=== PATIENT | male | born 1945 | race Asian ===

== ENCOUNTER → 2024-12-14 | Outpatient (CLI) | payer MEDICARE, MEDICAID, SELFPAY ==
--- NOTE | 2024-12-14 12:23 | XR_ITS ---
Examination: PA lateral chest 2 views TECHNIQUE: Upright PA lateral chest 2 views Exam date and time: December 14, 2024 1328 hours INDICATIONS: Chest pain beginning 2 days ago. FINDINGS: Minor prominence left ventricle No pneumonia or pulmonary edema Moderate osteopenia IMPRESSION: No pneumonia or pulmonary edema
== END | disposition home or self-care (01) ==
LOC: CDIM 11:24
PROVIDERS: PCP Family Medicine; Referring Provider Family Medicine; Visit Provider Family Medicine
DX: R07.9 Chest pain, unspecified (principal)
CPT/HCPCS: 71046

== ENCOUNTER 2025-02-22 13:43 | Inpatient (IN) | payer OTHER, MEDICAID, MEDICARE, SELFPAY ==
[2025-02-22 13:44] VITALS: BMI 29.0
[2025-02-22 13:58] VITALS: BP 126/81; PULSE 78; RESP 18; TEMP 36.7; O2SAT 96
--- NOTE | 2025-02-22 14:01 | XR_ITS ---
Examination: PA lateral chest 2 views TECHNIQUE: Upright PA lateral chest 2 views Exam date and time: February 22, 2025 1431 hours INDICATIONS: Acute chest pain today. FINDINGS: Normal heart size No lobar pneumonia or pulmonary edema Prominent osteopenia IMPRESSION: No lobar pneumonia or pulmonary edema
--- NOTE | 2025-02-22 14:01 | EKG_ITS ---
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1945 Requested By: Andrea Rosales (CHARLES) Order Number: [id number] Reading MD: Andrea Rosales (SCREW MACHINE TOOL SETTER) Measurements Intervals [place] Rate: 75 P: 37 UT: 172 QRS: -56 QRSD: 118 T: 19 QT: 420 QTc: 471 Interpretive Statements SINUS RHYTHM PATTERN CONSISTENT WITH PULMONARY DISEASE LEFT ANTERIOR FASCICULAR BLOCK [QRS AXIS <= -45, QR IN I, RS IN II] POSSIBLE LEFT VENTRICULAR HYPERTROPHY [VOLTAGE CRITERIA PLUS LAE OR QRS WIDENING] MODERATE T-WAVE ABNORMALITY, CONSIDER ANTERIOR ISCHEMIA [-0.1+ mV T-WAVE IN V3/V4] No previous ECG available for comparison /[id number]/S0/[id number].pdf
--- NOTE | 2025-02-22 14:01 | PD.EDRME ---
Rapid Medical Screening Exam [facility] Arrival date/time: 02/22/25 13:43 79-year-old male presents to the emergency dept today for complaint of generalized weakness patient had outpatient labs 4 days ago had low sodium as well as low potassium Chief Complaint: Weakness Vital signs: Vital Signs Temperature 98.1 F 02/22/25 13:58 Pulse Rate 78 02/22/25 13:58 Respiratory Rate 18 02/22/25 13:58 Blood Pressure 126/81 02/22/25 13:58 Pulse Oximetry (%) 96 02/22/25 13:58 Oxygen Delivery Method Room Air 02/22/25 13:58
[2025-02-22 14:51] LABS: Basophils % (Auto) 1 % (0-2.5); Eosinophils # (Auto) 0.2 Thou/mm3 (0.0-0.5); Eosinophils % (Auto) 2 % (0-10); Hematocrit 39.6 % (41.0-53.0); Hemoglobin 13.4 g/dL (13.5-16.0); Immature Granulocytes % (Auto) 1 % (0-0); Immature Granulocytes Auto 0.07 Thou/mm3 (0.00-0.00); Lymphocytes # (Auto) 1.5 Thou/mm3 (1.0-4.8); Lymphocytes % (Auto) 19 % (10-50); Mean Corpuscular HGB Conc 33.8 g/dl (31.0-37.0); Mean Corpuscular Volume 80 fL (80-100); Monocytes # (Auto) 1.2 Thou/mm3 (0.0-0.8); Monocytes % (Auto) 15 % (0-12); Neutrophils % (Auto) 62 % (37-80); Nucleated Red Blood Cell % 0 /100 WBC (0); Platelet Count 264 Thou/mm3 (140-440); RDW Standard Deviation 37.7 fL (35.1-43.9); Red Blood Count 4.97 Miln/mm3 (4.50-5.90)
[2025-02-22 14:56] LABS: Collection Type, Urine Clean Catch
[2025-02-22 14:56] LABS: B-Type Natriuretic Peptide 27 pg/mL (0-100)
[2025-02-22 14:58] LABS: Partial Thromboplastin Time 27.8 Seconds (22.0-36.0); Prothrombin Time 10.8 Seconds (9.0-12.2)
[2025-02-22 15:01] LABS: Alanine Aminotransferase 24 U/L (10-49); Albumin, Serum 4.3 gm/dL (3.4-4.8); Albumin/Globulin Ratio 1.2 (1.2-2.2); Alkaline Phosphatase 90 U/L (46-116); Anion Gap 9 (7-16); Aspartate Amino Transferase 32 U/L (0-34); BUN/Creatinine Ratio 10 Ratio (12-20); Bilirubin,Total 0.5 mg/dL (0.3-1.2); Blood Urea Nitrogen 11 mg/dL (9-23); Calcium 9.2 mg/dL (8.3-10.6); Calcium (Corrected) 9.2 mg/dL (8.5-10.1); Carbon Dioxide 34.7 mMol/L (20.0-31.0); Chloride 82 mMol/L (98-107); Creatinine (Component) 1.1 mg/dL (0.6-1.3); Estimated Creatinine Clearance 54.5 mL/min (>60); Globulin 3.5 gm/dL (2.3-3.5); Glucose 247 mg/dL (74-106); Magnesium 2.1 mg/dL (1.6-2.6); Osmolality,Calculated 260 (275-295); Sodium 126 mMol/L (136-145); Total Protein 7.8 gm/dL (5.7-8.2); Troponin I 0.034 ng/mL (0.0-0.045); eGFR > 60 See Note
[2025-02-22 15:06] LABS: Potassium 2.4 mMol/L (3.4-5.1)
[2025-02-22 15:08] LABS: Bacteria,Urine 1+; Bilirubin,Urine Negative (Negative); Blood,Urine Negative (Negative); Clarity,Urine Clear (Clear/Hazy); Color,Urine Lt-Yellow (Lt Yel-Yel); Glucose, Urine 4+ (Negative); Ketones,Urine Negative (Negative); Leukocyte Esterase,Urine Positive (Negative); Nitrite,Urine Negative (Negative); PH,Urine 6.5 (5.0-7.0); Protein,Urine Negative (Neg - Trace); RBC,Urine 34 /hpf (0-3); Specific Gravity,Urine 1.023 (1.001-1.035); Squamous Epithelial Cell,Urine 2 /hpf (0-5); Urobilinogen,Urine Negative mg/dL (0.0-1.0); WBC,Urine 16 /hpf (0-5)
[2025-02-22 18:30] VITALS: BP 148/78; PULSE 71; RESP 16; TEMP 37; O2SAT 95
--- NOTE | 2025-02-22 18:43 | PC.NURSE ---
PT CAME TO ER W/ WEAKNESS AND NOT FEELING GOOD. POTASSIUM IS 2.4. VS STABLE. GRANDSON AT BEDSIDE. WILL CONT TO MONITOR.
--- NOTE | 2025-02-22 19:01 | PD.EDWEAK ---
ED Weakness RME/HPI General Chief complaint: Weakness Stated complaint: WEAKNESS AND ABNORMAL LABS SENT BY PMD Time Seen by Provider: 02/22/25 19:55 Source: patient, family, RN notes reviewed and old records reviewed Arrival date/time: 02/22/25 13:43 Mode of arrival: wheelchair Limitations: no limitations RME / HPI RME / HPI Narrative: 02/22/25 13:43 79-year-old male presents to the emergency dept today for complaint of generalized weakness patient had outpatient labs 4 days ago had low sodium as well as low potassium DR. SUGGS?S MAIN ED EVALUATION: 79-year-old male with Hx of High cholesterol, hypertension, iron deficiency anemia, and depression presenting to the emergency department via private auto from Dr. Whitfield's office who is presenting for chief/stated complaint of generalized weakness x 5 days. Son is at bedside and is able to provide patient information. Patient has had previous labs showing K 2.8 and Na 126. Denies difficulty walking, dizziness or shortness of breath. Patient denies any other associated symptoms or medical complaints. - PMH: High cholesterol, hypertension, iron deficiency anemia, depression - PSH: Denies - Social history: Lives with family. - Current medications: Reviewed PCP is MD Nahid Related Data Home Medications ?Medication ?Instructions ?Recorded ?Confirmed Pioglitazone Hcl/Metformin Hcl * 1 tab PO BID DIABETIS #0 tabs 11/30/13 (ACTOPLUS MET 15/850 *) atorvastatin 20 mg tablet (Lipitor) 20 mg PO HS CHOLESTROL ##0 11/30/13 lisinopril 40 mg tablet 40 mg PO QDAY High Blood Pressure 11/30/13 ##0 montelukast 10 mg tablet 10 mg PO QHSPRN PRN ASTHMA ##0 11/30/13 (Singulair) omeprazole 20 mg tablet,delayed 20 mg PO QDAY GERD ##0 11/30/13 release risperidone 1 mg tablet (Risperdal) 1 mg PO HS #0 tabs 11/30/13 sertraline 100 mg tablet (Zoloft) 100 mg PO HS Depression #0 tabs 11/30/13 Aspirin (Aspir 81) 81 mg PO QDAY ##0 09/03/17 baclofen 10 mg tablet 10 mg PO BID #0 tabs 09/03/17 ferrous sulfate 325 mg (65 mg 325 mg PO BIDWM #0 tabs 09/03/17 iron) tablet (Feosol) hydrochlorothiazide 12.5 mg tablet 50 mg PO QAM #0 tabs 09/03/17 ibuprofen 800 mg tablet 800 mg PO Q8HR PRN PAIN #0 tabs 09/03/17 metformin 850 mg tablet 850 mg PO BID #0 tabs 09/03/17 (Glucophage) Allergies Allergy/AdvReac Type Severity Reaction Status Date / Time Penicillins Allergy Severe Anaphylaxis Verified 02/22/25 13:49 Review of Systems Review of Systems Systems Reviewed: All systems reviewed, normal except as documented Narrative Review of Systems: PULM: No shortness of breat Musc/skel: No difficulty walking Neuro: + weakness, no dizziness Past Medical History Social History SMOKING STATUS: Never smoker ED Exam Narrative Physical exam: GENERAL: In general the patient is awake, interactive, in an emergency department [facility]. HEAD/EYES/EARS/NOSE/THROAT: normo-cephalic, atraumatic, mucus membranes are moist. No cervical tenderness palpation midline. Supple neck. CARDIOVASCULAR: regular rate and regular rhythm, no murmurs, heart sounds are not distant, strong pulses in all four extremities that are equal and symmetric bilateral upper and lower extremities, normal capillary refill. CHEST/PULMONARY: normal chest rise and fall, good air movement, clear to auscultation bilaterally, normal inspiratory to expiratory ratios without evidence of respiratory distress. ABDOMEN: soft, not tender, no masses appreciated BACK: normal range of motion without pain. NEUROLOGICAL: No focal weakness. Normal finger to nose exam. EXTREMITY: no peripheral edema. SKIN: warm, dry, well-perfused, PSYCH: calm, cooperative, no evidence of psychosis or agitation General Limitations: Present no limitations Course Course Course Narrative: Chest x-ray is obtained for chief complaint of generalized weakness. Quality Measures none Orders Category Date Time Status COVID-19 Screening Questionnaire NOW Care 02/23/25 00:11 Active Decision to Admit X1 Care 02/23/25 00:11 Active EKG (ED ONLY) *Do not use* NOW Care 02/22/25 14:01 Completed EKG (ED Only) Stat Exams 02/22/25 14:01 Draft XR chest 2V Stat Exams 02/22/25 14:01 Completed B-Type Natriuretic Peptide Stat Lab 02/22/25 14:18 Completed BMP [Basic Metabolic Panel] Stat Lab 02/22/25 22:18 Completed CBC Stat Lab 02/22/25 14:18 Completed Comprehensive Metabolic Panel Stat Lab 02/22/25 14:18 Completed Magnesium Stat Lab 02/22/25 14:18 Completed Partial Thromboplastin Time Stat Lab 02/22/25 14:18 Completed Prothrombin Time with INR Stat Lab 02/22/25 14:18 Completed Troponin I Stat Lab 02/22/25 14:18 Completed Urinalysis Stat Lab 02/22/25 14:46 Completed POTASSIUM CHL 10 mEq IVPB [Kcl Ivpb] Med 02/22/25 19:03 Discontinued 10 meq in 100 ml IV Q1H Potassium Chloride [K-Dur] Med 02/22/25 19:02 Discontinued 40 meq PO X1 ONE Sodium Chloride 0.9% 1000 ml [Ns] 1,000 ml Med 02/22/25 19:05 Discontinued IV 999 mls/hr cefTRIAXone/D5w 1gm IV premix [Rocephin/D5w 1gm IV Med 02/22/25 19:05 Discontinued premix] 1 gm in 50 ml IV X1 Vital Signs Vital signs: Vital Signs Temperature 98.1 F 02/22/25 13:58 Pulse Rate 78 02/22/25 13:58 Respiratory Rate 18 02/22/25 13:58 Blood Pressure 126/81 02/22/25 13:58 Pulse Oximetry (%) 96 02/22/25 13:58 Oxygen Delivery Method Room Air 02/22/25 13:58 Procedures -ED EKG Interpretation #1: Date of EK02/22/25 Time of EK:03 Interpretation: Interpreted by me EKG Impression: Normal sinus rhythm Additional EKG comment: LVH. No elevations or depressions. QTc is 471. No ST elevations. No ST depressions. Weakness MDM Narrative MDM Narrative:: Scribe Attestation: Ellen Ryan, am scribing for and in the presence of Dr. Suggs. Provider Notation: Although this document has been carefully reviewed, there may still be some phonetic and other typographical errors. These errors are purely grammatical due to imperfections in the software program and should not be construed in any way to compromise the substance of the patient's medical care during this visit. DDX: Anemia, UTI, dehydration, electrolyte abnormality, low potassium, angina. Patient data External records reviewed:: [facility] previous records (No prior ED records available for review.) and Other (specify) (Paperwork from the doctor's office with the son shows: High cholesterol, hypertension, iron deficiency anemia, depression) Clinical information provided by:: patient and family (Son: Reports that his potassium was low at the doctor's office.) Social determinants that could affect healthcare access:: none Patient has the following chronic illnesses:: High cholesterol, hypertension, iron deficiency anemia, depression How is presenting disease/condition affected by chronic disease/condition?: exacerbated by Evaluation data The following diagnostics were reviewed and interpreted by me:: lab results, radiology exam(s) and EKG tracing(s) (1403: Sinus rhythm 75 BPM, ST-T wave change in v2-v3 , no elevation, no depression, LVH, QTc 449, no prior EKG available for comparison. ) Lab and/or radiology exams considered but not ordered:: None Interpretation Summary: Chest x-ray is interpreted reviewed by me. On my review the patient does not have pneumothorax, cardiomegaly, or CHF. Pending radiology interpretation. Chest x-ray FINDINGS: Normal heart size No lobar pneumonia or pulmonary edema Prominent osteopenia IMPRESSION: No lobar pneumonia or pulmonary edema LABS Hematology: Hgb 13.4, Hct 39.6%, [place] % 15%, [place] # 1.2, Immature granulocytes # 0.07, Immature granulocytes % 1%. Chemistry: Sodium 126, Potassium 2.4, Chloride 82, Carbon dioxide 34.7, Estimated creatinine 54.5, BUN/creatinine 10 ratio, Glucose 247, Calculated osmality 260. Urine: glucose 4+, RBC 34, WBC 16, Bacteria 1+. Medications / Prescriptions Medications or Prescriptions considered but not ordered:: None Medication administrations:: Medication Administration History Discontinued Medications Potassium Chloride (Kcl Ivpb) 10 meq in 100 mls @ 100 mls/hr IV Q1H AJ Stop: 02/22/25 21:02 Last Infusion: 02/22/25 21:42 Dose: Infused Documented By: Admin: 02/22/25 20:42 Dose: 100 mls/hr Documented By: Infusion: 02/22/25 20:41 Dose: Infused Documented By: Admin: 02/22/25 19:29 Dose: 100 mls/hr Documented By: EF Ceftriaxone Sodium/Dextrose (Rocephin/D5w 1gm Iv Premix) 1 gm in 50 mls @ 100 mls/hr IV X1 ONE Stop: 02/22/25 19:34 Last Infusion: 02/22/25 19:59 Dose: Infused Documented By: Admin: 02/22/25 19:29 Dose: 100 mls/hr Documented By: EF Sodium Chloride (Ns) 1,000 mls @ 999 mls/hr IV .Q1H1M ONE Stop: 02/22/25 20:05 Last Infusion: 02/22/25 20:31 Dose: Infused Documented By: Admin: 02/22/25 19:30 Dose: 999 mls/hr Documented By: EF Potassium Chloride (Potassium Chloride 20 Meq Tabcr) 40 meq PO X1 ONE Stop: 02/22/25 19:03 Last Admin: 02/22/25 19:28 Dose: 40 meq Documented By: EF See above if any Consultations Consultation(s) initiated? (list below): Yes Consultation #1 (Physician, Specialty, Details): Case d/w hospitalist, Dr. Lowe who was made aware of the patient?s HPI, PMHx, lab and/or radiology results. Treatment plan was discussed. Will admit for further evaluation and management. Accepts patient for admission. Time: 00:08 Diagnosis Weakness Differential Diagnosis: anemia and other (UTI, dehydration, electrolyte abnormality, low potassium, angina) Most likely diagnosis given after review of the tests above:: Generalized weakness, acute hypokalemia, UTI. Admission Indicated Admission indicated?: indicated Admission Request Was there a request for admission?: Yes Admission Attestation Admission request attestation: Discussed case with [] from Hospitalist service regarding admission. Discussed patients ED course, exam findings, labs, and radiology results. The Hospitalist [agrees,declines] to accept the patient for admission. Disposition Plan Disposition Plan: Admit Discharge Plan Plan Patient Disposition: Admit Acute Care w/in Hospital Patient condition on transfer: Stable Prescriptions/Referrals Prescriptions/Med Rec: No Action montelukast [Singulair] 10 MG tablet 10 mg PO QHSPRN PRN (Reason: ASTHMA) Qty: 0 sertraline [Zoloft] 100 MG tablet 100 mg PO HS Qty: 0 atorvastatin [Lipitor] 20 MG tablet 20 mg PO HS Qty: 0 lisinopril 40 MG tablet 40 mg PO QDAY Qty: 0 risperidone [Risperdal] 1 MG tablet 1 mg PO HS Qty: 0 omeprazole 20 MG tablet,delayed release (DR/EC) 20 mg PO QDAY Qty: 0 Pioglitazone Hcl/Metformin Hcl * (ACTOPLUS MET *) 1 TAB tablet 1 tab PO BID Qty: 0 Aspirin (Aspir 81) 81 MG TABLET.DR 81 mg PO QDAY Qty: 0 ibuprofen 800 MG tablet 800 mg PO Q8HR PRN (Reason: PAIN) Qty: 0 metformin [Glucophage] 850 MG tablet 850 mg PO BID Qty: 0 baclofen 10 MG tablet 10 mg PO BID Qty: 0 ferrous sulfate [Feosol] 1 TAB tablet 325 mg PO BIDWM Qty: 0 hydrochlorothiazide 12.5 MG tablet 50 mg PO QAM Qty: 0 Referrals: Valente Whitfield MD [Primary Care Provider] - In 1 week Problem List Clinical Impression: Generalized weakness, Acute hypokalemia, Acute UTI Patient/Caregiver Discharge Instructions Additional Instructions: DISCHARGE INSTRUCTIONS Even though you have been discharged from the Emergency Department, there are several things that you should do to ensure that you receive proper care: 1. DO READ your discharge instructions as these contain important information concerning your medical care. 2. If medication has been prescribed for your condition, fill the prescription as soon as possible and follow the directions on the medication. 3. RETURN AT ONCE TO THE EMERGENCY DEPARTMENT if you have any problems or concerns. These include but are not limited to fever, worsening pain(belly, chest, head, etc?), worsening shortness of breath, uncontrollable bleeding, inability to tolerate food and water, or any condition that makes you question your well-being. Also, if your symptoms do not improve in the next 12-24 hours, return to the ER or seek medical care immediately. 4. Be sure to follow up with your regular physician or specialist as instructed at discharge as this is the best way to ensure that you receive the very best of care. If you do not have a primary care physician, please contact a physician group and make an appointment. 5. Please visit [facility] for coupons regarding your prescriptions. It is a free service for you to use and can help reduce the cost of your medication. We would like to thank you for coming today and our hope is that we served you and your family well during your stay Print Language: Swedish Stand Alone Forms: Liane Award Info., Patient Portal Info Letter
[2025-02-22] MEDS: POTASSIUM CHLORIDE 20 mEq TABCR 40 MEQ PO (19:28)
[2025-02-22] MEDS: cefTRIAXone/D5w 1gm IV premix 1 GM/50 ML BAG IV (19:29)
[2025-02-22] MEDS: POTASSIUM CHL 10 mEq IVPB 10 MEQ/100 ML BAG 100 MEQ IV ×2 (19:29→20:42)
[2025-02-22] MEDS: SODIUM CHLORIDE 0.9% 1000 ML 1,000 ML 999 ML IV (19:30)
[2025-02-22 23:10] LABS: Anion Gap 9 (7-16); BUN/Creatinine Ratio 13 Ratio (12-20); Blood Urea Nitrogen 10 mg/dL (9-23); Calcium 8.6 mg/dL (8.3-10.6); Carbon Dioxide 31.7 mMol/L (20.0-31.0); Chloride 88 mMol/L (98-107); Creatinine (Component) 0.8 mg/dL (0.6-1.3); Glucose 145 mg/dL (74-106); Osmolality,Calculated 260 (275-295); Sodium 129 mMol/L (136-145); eGFR > 60 See Note
[2025-02-23] VITALS (7 sets, daily range): BP systolic 105–141; BP diastolic 66–78; PULSE 61–97; RESP 15–18; TEMP 36.1–36.8; O2SAT 95–97
[2025-02-23 00:07] LABS: Potassium 2.4 mMol/L (3.4-5.1)
[2025-02-23] MEDS: POTASSIUM CHLORIDE 20 mEq TABCR 40 MEQ PO ×2 (01:26→14:35)
[2025-02-23] MEDS: POTASSIUM CHL 10 mEq IVPB 10 MEQ/100 ML BAG 100 MEQ IV ×8 (01:27→11:24)
--- NOTE | 2025-02-23 01:43 | PD.RESHP ---
Documentation for date of: 02/23/25 HPI History of Present Illness Chief complaint: general weakness History of present illness: The patient is a 79-year-old [place]ian and Hmong speaking male with previous medical history of hypertension, hyperlipidemia, diabetes, iron deficiency anemia, type 2 diabetes, depression who was sent to the ED from Dr. Whitfield office after labs showed that he has low potassium 2.8 and low sodium 126. His grandson at the bedside providing translation at some moments. He reports feeling general weakness that started approximately 5 days ago, numbness in his feet. He usually ambulates using cane, but right now he is too weak to walk. He reports having burning during urination and increased frequency of urination. He denies shortness of breath, chest pain, abdominal pain, nausea, vomiting, diarrhea. ED course: Blood pressure 126/81, heart rate 78, respiratory rate 18, afebrile, saturating well on room air. Labs showed WBC count 8.0, hemoglobin 13.4, hematocrit 39.6, platelets 264. INR 1.0. Sodium 126, potassium 2.4, chloride 82, carbon dioxide 31.7, BUN 11, creatinine 0.8, glucose 247, AST 32, ALT 24, troponin I 0.034. UA showed 4+ glucose, leukocyte esterase positive, RBC 34, WBC 16, 1+ bacteria. Chest x-ray was negative for acute lung disease. EKG showed sinus rhythm. In the ED he received 40 mEq of potassium p.o. and 20 mEq potassium IV, 1 L of fluids, 1 g of ceftriaxone x 1. After receiving potassium supplements, repeat potassium was 2.4. Social history: Lives with his family at home, able to ambulate independently with cane, sometimes drives himself to his doctor's appointment. Does not smoke, drinks a few beers few times a month. Surgical history: Cataract surgery Allergies: Penicillins Medications: Full med rec is pending, according to the chart review he has a prescription for hydrochlorothiazide, chlorthalidone. Review of Systems Review of Systems Systems Reviewed: All systems reviewed, normal except as documented Past Medical History Past Medical History CARDIAC: Positive Hypercholesterolemia and Hypertension ENDOCRINE: Positive Diabetes Mellitus Type 2 PSYCHO/SOCIAL: Positive Depression Social History SMOKING STATUS: Never smoker Exam Vital Signs Temp Pulse Resp BP Pulse Ox O2 Del Method 98.0 F 69 17 130/71 95 Room Air 02/23/25 00:00 02/23/25 00:00 02/23/25 00:00 02/23/25 00:00 02/23/25 00:00 02/23/25 00:00 Narrative Exam Physical Exam General: Awake and in no acute distress. Conversational and non-toxic appearing. HEENT: Normocephalic, atraumatic, mucous membranes moist. Heart: Regular rate and rhythm, no murmurs. Lungs: Clear to auscultation with no wheezing or crackles. Abdomen: Soft, nondistended, nontender, positive bowel sounds. ?No guarding or rebound tenderness. Neurologic: Alert and oriented x3, BUE strength 5/5 strength in the lower extremities 4/5, decreased sensitivity in bilateral feet. Extremities: No edema. Skin: No rash or ecchymoses. Results: Labs 02/23/25 04:20 02/22/25 22:18 Labs: Short CBC 02/22/25 Range/Units 14:18 WBC 8.0 (3.8-10.6) Thou/mm3 Hgb 13.4 L (13.5-16.0) g/dL Hct 39.6 L (41.0-53.0) % Plt Count 264 (140-440) Thou/mm3 BMP 02/22/25 02/22/25 14:18 22:18 Sodium 126 L 129 L Potassium 2.4 L* 2.4 L* Chloride 82 L 88 L Carbon Dioxide 34.7 H 31.7 H BUN 11 10 Creatinine 1.1 0.8 Glucose 247 H 145 H D Calcium 9.2 8.6 Cardiac Enzymes 02/22/25 Range/Units 14:18 Troponin I 0.034 (0.0-0.045) ng/mL Liver Function 02/22/25 Range/Units 14:18 Total Bilirubin 0.5 (0.3-1.2) mg/dL AST 32 (0-34) U/L ALT 24 (10-49) U/L Alkaline Phosphatase 90 (46-116) U/L Albumin 4.3 (3.4-4.8) gm/dL Urine 02/22/25 Range/Units 14:46 Urine Color Lt-Yellow (Lt Yel-Yel) Urine Clarity Clear (Clear/Hazy) Urine pH 6.5 (5.0-7.0) Ur Specific [place] 1.023 (1.001-1.035) Urine Protein Negative (Neg - Trace) Urine Glucose (UA) 4+ A (Negative) Quality Measures Quality Measures VTE prophylaxis Advance care planning discussed with:: patient Medications Home Medications and Allergies Home Medications ?Medication ?Instructions ?Recorded ?Confirmed ?Type Pioglitazone Hcl/Metformin Hcl * 1 tab PO BID DIABETIS #0 tabs 11/30/13 History (ACTOPLUS MET 15/ *) atorvastatin 20 mg tablet (Lipitor) 20 mg PO HS CHOLESTROL ##0 11/30/13 History lisinopril 40 mg tablet 40 mg PO QDAY High Blood Pressure 11/30/13 History ##0 montelukast 10 mg tablet 10 mg PO QHSPRN PRN ASTHMA ##0 11/30/13 History (Singulair) omeprazole 20 mg tablet,delayed 20 mg PO QDAY GERD ##0 11/30/13 History release risperidone 1 mg tablet (Risperdal) 1 mg PO HS #0 tabs 11/30/13 History sertraline 100 mg tablet (Zoloft) 100 mg PO HS Depression #0 tabs 11/30/13 History Aspirin (Aspir 81) 81 mg PO QDAY ##0 09/03/17 History baclofen 10 mg tablet 10 mg PO BID #0 tabs 09/03/17 History ferrous sulfate 325 mg (65 mg 325 mg PO BIDWM #0 tabs 09/03/17 History iron) tablet (Feosol) hydrochlorothiazide 12.5 mg tablet 50 mg PO QAM #0 tabs 09/03/17 History ibuprofen 800 mg tablet 800 mg PO Q8HR PRN PAIN #0 tabs 09/03/17 History metformin 850 mg tablet 850 mg PO BID #0 tabs 09/03/17 History (Glucophage) Allergies Allergy/AdvReac Type Severity Reaction Status Date / Time Penicillins Allergy Severe Anaphylaxis Verified 02/22/25 13:49 Visit Medications Acetaminophen (Acetaminophen 325 Mg Tablet) 650 mg PO Q6H PRN PRN Reason: Fever >100.3 or pain 1-3 Stop: 03/25/25 00:59 Dextrose (Dextrose 50%-Water Inj 50 Ml Syringe) 25 ml IV Q15MIN PRN PRN Reason: BG 50-70 responsive npo pt Stop: 03/25/25 01:06 Dextrose (Dextrose 50%-Water Inj 50 Ml Syringe) 50 ml IV Q15MIN PRN PRN Reason: BG <50 OR BG <70 & pt unresponsive Stop: 03/25/25 01:06 Enoxaparin Sodium (Enoxaparin Sod Inj 40 Mg/0.4 Ml Syringe) 40 mg SC QDAY [facility] Stop: 03/09/25 08:59 Glucagon (Glucagon Inj 1 Mg Vial) 1 mg IM Q15MIN PRN PRN Reason: BG <70, and no IV access Potassium Chloride (Kcl Ivpb) 10 meq in 100 mls @ 100 mls/hr IV Q1H AJ Stop: 02/23/25 05:02 Last Admin: 02/23/25 01:27 Dose: 100 mls/hr Ceftriaxone Sodium/Dextrose (Rocephin/D5w 1gm Iv Premix) 1 gm in 50 mls @ 100 mls/hr IV QDAY [facility] Stop: 03/02/25 08:59 Insulin Human Lispro (Insulin Lispro (Admelog) 1 Unit/0.01 Ml Unit) 0 unit SC [facility]; Protocol Stop: 03/25/25 07:29 Ondansetron HCl (Ondansetron Inj 2 Mg/Ml Inj 2 Ml) 4 mg IV Q6H PRN; Protocol PRN Reason: NAUSEA OR VOMITING Stop: 03/25/25 00:59 Oxycodone/Acetaminophen (Oxycodone/Apap 5/325 Tablet) 1 tab PO Q6H PRN PRN Reason: PAIN SCALE 4-6 (Moderate Stop: 02/28/25 00:59 Discontinued Medications Potassium Chloride (Kcl Ivpb) 10 meq in 100 mls @ 100 mls/hr IV Q1H AJ Stop: 02/22/25 21:02 Last Infusion: 02/22/25 21:42 Dose: Infused Ceftriaxone Sodium/Dextrose (Rocephin/D5w 1gm Iv Premix) 1 gm in 50 mls @ 100 mls/hr IV X1 ONE Stop: 02/22/25 19:34 Last Infusion: 02/22/25 19:59 Dose: Infused Sodium Chloride (Ns) 1,000 mls @ 999 mls/hr IV .Q1H1M ONE Stop: 02/22/25 20:05 Last Infusion: 02/22/25 20:31 Dose: Infused Potassium Chloride (Potassium Chloride 20 Meq Tabcr) 40 meq PO X1 ONE Stop: 02/22/25 19:03 Last Admin: 02/22/25 19:28 Dose: 40 meq Potassium Chloride (Potassium Chloride 20 Meq Tabcr) 40 meq PO X1 ONE Stop: 02/23/25 01:03 Last Admin: 02/23/25 01:26 Dose: 40 meq Assessment & Plan Plan The patient is a 79-year-old [place]ian and Hmong speaking male with previous medical history of hypertension, hyperlipidemia, diabetes, iron deficiency anemia, type 2 diabetes, depression who was sent to the ED from Dr. Whitfield office after labs showed that he has low potassium 2.8 and low sodium 126. He reports feeling general weakness that started approximately 5 days ago, numbness in his feet. Patient is going to be admitted for severe hyperkalemia management and treatment. #Severe hypokalemia #Hyponatremia #General Weakness #Lower extremity weakness #Contraction alkalosis Could be in the setting of diuretic use. In the ED patient received overall 60 mEq of potassium, repeat potassium remained the same 2.4. Patient has high bicarbonate, which could be due to increased H+ secretion due to thiazide diuretic use. Plan: ? Potassium 40 mEq p.o. ? Potassium 40 mEq IV ? Repeat potassium levels after the replenishment ? Monitor daily CMP ? Ordered urine electrolytes ? Ordered urine creatinine microalbumin ratio ? Consider nephrology consult if hypokalemia persists ? Home diuretics on hold for now ? med rec is pending #UTI Patient reports dysuria, increased urinary frequency. UA was suspicious for signs of UTI. Plan: ? Ceftriaxone 1 g daily #Type 2 diabetes Plan: ? Insulin sliding scale with Accu-Cheks ? Hypoglycemia protocol #History of hypertension Plan: ? Will hold blood pressure medications for now due to normal blood pressure Health maintenance: FEN: cardiac, carb consistent DVT prophylaxis: lovenox GI prophylaxis: none Dispo: telemetry CODE STATUS: DNR (patient reported he wants to be DNR in the presence of Dr. Lowe and beverly) Plan of care discussed with attending Dr. Lowe. Opal Hwang MD, PGY 1. Attending Provider Attestation/Addendum I attest that I was physically present for the evaluation, physical examination, lab and imaging review of the patient with the residents. I discussed the case with the residents and agree with the findings and plans of care as documented above. Patient is an 79-year-old male with past medical history of hypertension, hyperlipidemia, diabetes, iron deficiency anemia, depression who presented to the ED from Dr. Whitfield's office after he was found to have potassium of 2.8 and sodium 126. Patient has been having generalized weakness and numbness in his feet for last 5 days. He usually ambulates using a cane but has not been able to ambulate recently due to the weakness. He is also having burning and increased frequency of urination. Denies any fever, shortness of breath, chest pain or palpitations. In the ED, vitals are within normal limits. Lab results show sodium of 126, potassium 2.4, chloride 82, CO2 31.7, glucose 247. Urinalysis shows 4+ glucose, 16 WBCs, 34 RBCs, positive leukocyte esterase and 1+ bacteria. EKG shows sinus rhythm. Patient received a total of 60 mEq of potassium chloride in the ED despite which his potassium remained 2.4. Patient has been taking hydrochlorothiazide at home. We will admit the patient for management of severe electrolyte imbalances, generalized weakness. We will give him additional 40 mill equivalents of p.o. and 40 mill equivalent of IV potassium. We will obtain urine electrolytes, magnesium, phosphorus and hold his diuretics. Also started on Rocephin 1 g daily for UTI. Insulin regimen for diabetes. Irma Lowe MD
[2025-02-23 02:30] LABS: Chloride,Urine Random 39.9 mMol/L (55.0-125.0); Potassium,Urine Random 16 mMol/L (12-62); Sodium,Urine Random 74.7 mMol/L (20.0-110.0)
[2025-02-23 04:53] LABS: Basophils % (Auto) 1 % (0-2.5); Eosinophils # (Auto) 0.1 Thou/mm3 (0.0-0.5); Eosinophils % (Auto) 2 % (0-10); Hemoglobin 12.2 g/dL (13.5-16.0); Immature Granulocytes % (Auto) 1 % (0-0); Immature Granulocytes Auto 0.06 Thou/mm3 (0.00-0.00); Lymphocytes # (Auto) 1.5 Thou/mm3 (1.0-4.8); Lymphocytes % (Auto) 19 % (10-50); Mean Corpuscular HGB Conc 33.9 g/dl (31.0-37.0); Mean Corpuscular Hemoglobin 27.1 pg (25.0-35.0); Mean Corpuscular Volume 80 fL (80-100); Monocytes % (Auto) 13 % (0-12); Neutrophils % (Auto) 65 % (37-80); Nucleated Red Blood Cell % 0 /100 WBC (0); Platelet Count 232 Thou/mm3 (140-440); RDW Standard Deviation 37.2 fL (35.1-43.9); Red Blood Count 4.51 Miln/mm3 (4.50-5.90); White Blood Count 7.8 Thou/mm3 (3.8-10.6)
[2025-02-23 05:11] LABS: Glucose Estimated Average 160 mg/dL (80-131); Hemoglobin A1C 7.2 % Hgb (4.8-6.0)
[2025-02-23 05:12] LABS: Alanine Aminotransferase 17 U/L (10-49); Albumin, Serum 3.6 gm/dL (3.4-4.8); Albumin/Globulin Ratio 1.2 (1.2-2.2); Alkaline Phosphatase 70 U/L (46-116); Anion Gap 9 (7-16); Aspartate Amino Transferase 23 U/L (0-34); BUN/Creatinine Ratio 10 Ratio (12-20); Bilirubin,Total 0.7 mg/dL (0.3-1.2); Blood Urea Nitrogen 9 mg/dL (9-23); Calcium 8.2 mg/dL (8.3-10.6); Calcium (Corrected) 8.5 mg/dL (8.5-10.1); Carbon Dioxide 30.4 mMol/L (20.0-31.0); Chloride 90 mMol/L (98-107); Creatinine (Component) 0.9 mg/dL (0.6-1.3); Estimated Creatinine Clearance 66.7 mL/min (>60); Globulin 2.9 gm/dL (2.3-3.5); Glucose 231 mg/dL (74-106); Magnesium 1.8 mg/dL (1.6-2.6); Osmolality,Calculated 264 (275-295); Sodium 129 mMol/L (136-145); Total Protein 6.5 gm/dL (5.7-8.2); eGFR > 60 See Note
[2025-02-23 05:20] LABS: Potassium 2.7 mMol/L (3.4-5.1)
[2025-02-23] MEDS: Magnesium Sulfate 4 GM Ivpb 4 GM/50 ML BAG IV (05:57)
[2025-02-23] MEDS: INSULIN LISPRO (AdmeLOG) 1 UNIT/0.01 ML UNIT SC ×3 (07:27→16:36)
[2025-02-23] MEDS: cefTRIAXone/D5w 1gm IV premix 1 GM/50 ML BAG IV (08:07)
[2025-02-23] MEDS: ENOXAPARIN SOD INJ 40 MG/0.4 ML SYRINGE SC (08:08)
[2025-02-23 09:54] LABS: Potassium 2.9 mMol/L (3.4-5.1)
--- NOTE | 2025-02-23 13:48 | PD.RESPRO ---
Documentation for date of: 02/23/25 Subjective Subjective Interval history: Patient examined at bedside. He complains of lower extremity weakness and generalized fatigue. Daughter was at bedside stating that he has had poor oral intake due to the weakness. Mostly drinking Ensure. Vitals stable, CBC unremarkable. CMP showed mild hyponatremia sodium 129. Severe hypokalemia slowly improving with most recent level 2.9. Will replete additional 40 mEq oral and 40 mEq IV. Repeat potassium at 5 PM. Hypochloremic metabolic alkalosis on labs most likely in setting of diuretic use which could also be contributing to patient's hypokalemia. Hold all diuretics at this time. Other home medications were resumed. Continue ceftriaxone for treatment of complicated UTI. Follow-up with urine cultures. Physical therapy evaluation pending. Will continue to closely monitor. Exam Vital Signs Temp Pulse Resp BP Pulse Ox O2 Del Method 96.9 F 63 15 121/74 96 Room Air 02/23/25 12:00 02/23/25 12:00 02/23/25 12:00 02/23/25 12:00 02/23/25 12:00 02/23/25 12:00 Narrative Exam General: Elderly male, awake and in no acute distress. Conversational and non-toxic appearing. HEENT: Normocephalic, atraumatic, mucous membranes dry. Heart: Regular rate and rhythm, no murmurs. Lungs: Clear to auscultation with no wheezing or crackles. Abdomen: Soft, nondistended, nontender, positive bowel sounds. ?No guarding or rebound tenderness. Neurologic: Alert and oriented x3, BUE strength 5/5 strength in the lower extremities 3/5, decreased sensitivity in bilateral feet. Extremities: No edema. Skin: No rash or ecchymoses. Objective Labs 02/24/25 05:36 02/24/25 05:36 Labs: Laboratory Results - last 24 hr 02/22/25 02/22/25 02/22/25 14:18 14:46 22:18 WBC 8.0 RBC 4.97 Hgb 13.4 L Hct 39.6 L MCV 80 MCH 27.0 MCHC 33.8 RDW Std Deviation 37.7 Plt Count 264 Neut % (Auto) 62 Lymph % (Auto) 19 [place] % (Auto) 15 H Eos % (Auto) 2 Baso % (Auto) 1 Neut # (Auto) 5.0 Lymph # (Auto) 1.5 [place] # (Auto) 1.2 H Eos # (Auto) 0.2 Baso # (Auto) 0.0 Immature Gran # (Auto) 0.07 H Absolute Nucleated RBC 0.00 Immature Gran % 1 H Nucleated RBC % 0 PT 10.8 INR 1.0 APTT 27.8 Sodium 126 L 129 L Potassium 2.4 L* 2.4 L* Chloride 82 L 88 L Carbon Dioxide 34.7 H 31.7 H Anion Gap 9 9 BUN 11 10 Creatinine 1.1 0.8 Estim Creat Clear Calc 54.5 L 75.0 eGFR > 60 > 60 BUN/Creatinine Ratio 10 L 13 Glucose [address] Glu mg/dL Hemoglobin A1c Calculated Osmolality 260 L 260 L Calcium 9.2 8.6 Corrected Calcium 9.2 Magnesium 2.1 Total Bilirubin 0.5 AST 32 ALT 24 Alkaline Phosphatase 90 Troponin I 0.034 B-Natriuretic Peptide 27 Total Protein 7.8 Albumin 4.3 Globulin 3.5 Albumin/Globulin Ratio 1.2 Ur Collection Type Clean Catch Urine Color Lt-Yellow Urine Clarity Clear Urine pH 6.5 Ur Specific [place] 1.023 Urine Protein Negative Urine Glucose (UA) 4+ A Urine Ketones Negative Urine Blood Negative Urine Nitrite Negative Urine Bilirubin Negative Urine Urobilinogen (Auto) Negative Ur Leukocyte Esterase Positive Urine RBC 34 H Urine WBC 16 H Ur Squamous Epith Cells 2 Urine Bacteria 1+ A Ur Random Sodium Ur Random Potassium Ur Random Chloride 02/23/25 02/23/25 02/23/25 02:15 04:20 09:37 WBC 7.8 RBC 4.51 Hgb 12.2 L Hct 36.0 L MCV 80 MCH 27.1 MCHC 33.9 RDW Std Deviation 37.2 Plt Count 232 D Neut % (Auto) 65 Lymph % (Auto) 19 [place] % (Auto) 13 H Eos % (Auto) 2 Baso % (Auto) 1 Neut # (Auto) 5.0 Lymph # (Auto) 1.5 [place] # (Auto) 1.0 H Eos # (Auto) 0.1 Baso # (Auto) 0.0 Immature Gran # (Auto) 0.06 H Absolute Nucleated RBC 0.00 Immature Gran % 1 H Nucleated RBC % 0 PT INR APTT Sodium 129 L Potassium 2.7 L* 2.9 L Chloride 90 L Carbon Dioxide 30.4 Anion Gap 9 BUN 9 Creatinine 0.9 Estim Creat Clear Calc 66.7 eGFR > 60 BUN/Creatinine Ratio 10 L Glucose [address] Glu mg/dL 160 H Hemoglobin A1c 7.2 H Calculated Osmolality 264 L Calcium 8.2 L Corrected Calcium 8.5 Magnesium 1.8 Total Bilirubin 0.7 AST 23 ALT 17 Alkaline Phosphatase 70 D Troponin I B-Natriuretic Peptide Total Protein 6.5 Albumin 3.6 D Globulin 2.9 Albumin/Globulin Ratio 1.2 Ur Collection Type Urine Color Urine Clarity Urine pH Ur Specific [place] Urine Protein Urine Glucose (UA) Urine Ketones Urine Blood Urine Nitrite Urine Bilirubin Urine Urobilinogen (Auto) Ur Leukocyte Esterase Urine RBC Urine WBC Ur Squamous Epith Cells Urine Bacteria Ur Random Sodium 74.7 Ur Random Potassium 16 Ur Random Chloride 39.9 L Quality Measures Quality Measures VTE prophylaxis Advance care planning discussed with:: child Assessment & Plan Assessment Current Active Medications: Generic Name Dose Route Start Last Admin Trade Name Freq PRN Reason Stop Dose Admin Acetaminophen 650 mg 02/23/25 01:00 Acetaminophen 325 Mg Tablet PO 03/25/25 00:59 Q6H PRN Fever >100.3 or pain 1-3 Aspirin 81 mg 02/23/25 13:45 Aspirin Ec 81 Mg Tabec PO 03/25/25 13:44 QDAY [facility] Atorvastatin Calcium 20 mg 02/23/25 21:00 Atorvastatin Calcium 20 Mg Tablet PO 03/25/25 20:59 HS AJ Baclofen 10 mg 02/23/25 13:45 Baclofen 10 Mg Tablet PO 03/25/25 13:44 BID AJ Dextrose 25 ml 02/23/25 01:07 Dextrose 50%-Water Inj 50 Ml Syringe IV 03/25/25 01:06 Q15MIN PRN BG 50-70 responsive npo pt Dextrose 50 ml 02/23/25 01:07 Dextrose 50%-Water Inj 50 Ml Syringe IV 03/25/25 01:06 Q15MIN PRN BG <50 OR BG <70 & pt unresponsive Enoxaparin Sodium 40 mg 02/23/25 09:00 02/23/25 08:08 Enoxaparin Sod Inj 40 Mg/0.4 Ml Syringe SC 03/09/25 08:59 40 mg QDAY AJ Administration Escitalopram Oxalate 10 mg 02/23/25 13:45 Escitalopram Oxalate 10 Mg Tablet PO 03/25/25 13:44 QDAY AJ Ferrous Sulfate 325 mg 02/23/25 17:30 Ferrous Sulf 325 Mg Tablet PO 03/25/25 17:29 BIDWM AJ Gabapentin 100 mg 02/23/25 14:00 Gabapentin 100 Mg Capsule PO 03/25/25 13:59 TID AJ Glucagon 1 mg 02/23/25 01:07 Glucagon Inj 1 Mg Vial IM Q15MIN PRN BG <70, and no IV access Ceftriaxone Sodium/Dextrose 1 gm in 50 mls @ 100 mls/hr 02/23/25 09:00 02/23/25 08:07 Rocephin/D5w 1gm Iv Premix IV 03/02/25 08:59 100 mls/hr QDAY AJ Administration Insulin Human Lispro 0 unit 02/23/25 07:30 02/23/25 11:38 Insulin Lispro (Admelog) 1 Unit/0.01 Ml Unit SC 03/25/25 07:29 1 unit AC AJ Administration Protocol Ondansetron HCl 4 mg 02/23/25 01:00 Ondansetron Inj 2 Mg/Ml Inj 2 Ml IV 03/25/25 00:59 Q6H PRN NAUSEA OR VOMITING Protocol Oxycodone/Acetaminophen 1 tab 02/23/25 01:00 Oxycodone/Apap 5/325 Tablet PO 02/28/25 00:59 Q6H PRN PAIN SCALE 4-6 (Moderate Potassium Chloride 40 meq 02/23/25 13:46 Potassium Chloride 20 Meq Tabcr PO 02/23/25 13:47 X1 ONE Risperidone 1 mg 02/23/25 21:00 Risperidone 1 Mg Tablet PO 03/25/25 20:59 HS [facility] Plan The patient is a 79-year-old [place]e and Hmong speaking male with previous medical history of hypertension, hyperlipidemia, diabetes, iron deficiency anemia, type 2 diabetes, depression who was sent to the ED from Dr. Whitfield office after labs showed that he has low potassium 2.8 and low sodium 126. He reports feeling general weakness that started approximately 5 days ago, numbness in his feet. Patient is going to be admitted for severe hypokalemia management and treatment. #Severe hypokalemia #Hyponatremia #General Weakness #Lower extremity weakness #Hypochloremic metabolic alkalosis Most likely in setting of diuretic use. Initial potassium in the ED 2.4. No changes noticed on EKG. Patient takes hydrochlorothiazide 25 mg daily at home. Urine electrolytes: Random sodium 74 (N), random potassium 16 (N), chloride 40 (low) Plan: ?Continue to replete potassium as needed ? Repeat BMP 5 PM ? Monitor daily CMP ? Consider nephrology consult if hypokalemia persists ? Home diuretics on hold for now #Complicated UTI Patient reports dysuria, increased urinary frequency. UA positive for UTI. Plan: ? Ceftriaxone 1 g daily ? Urine cultures pending # [id number] type 2 diabetes, poorly controlled Glucose on admission 247. A1c 7.2 on this admission. A1c on 05/19 7.9. Patient takes Jardiance 25 mg daily, glipizide 10 mg BID at home. Plan: -Hold home meds ? Insulin sliding scale with Accu-Cheks ? Hypoglycemia protocol #History of hypertension Patient takes amlodipine 5 mg daily at home Plan: ? Will hold blood pressure medications for now due to normal blood pressure Health maintenance: FEN: cardiac, carb consistent DVT prophylaxis: lovenox GI prophylaxis: none Dispo: telemetry CODE STATUS: DNR (patient reported he wants to be DNR in the presence of Dr. Lowe and beverly) The patient's management plan was discussed with my attending physician Dr. Fernandez. Tabitha Rincon, PGY-1 I discussed with and supervised the direct marketing intern physician who took care of this patient. I personally saw and examined the patient and discussed the assessment and plan with the entire medicine team, including my attending Dr. Jim BLACKBURN. I agree with the assessment and plan as documented above. Patient interviewed and examined at bedside this a.m. No acute overnight events reported. Patient was admitted last night for severe hypokalemia with a potassium of 2.4. Most likely related to medication hydrochlorothiazide which will be held. Patient's potassium was repleted throughout the day along with magnesium. Which improved to 3.2 and was repleted again. will continue to follow potassium with AM chem panel. Patient also had symptoms of UTI with consistent U/A which is being treated empirically with Rocephin. Bryan Black M.D. Internal Medicine PGY-3 Attending Provider Attestation/Addendum I have examined the patient, reviewed labs and imaging findings, discussed the case with the resident(s), and reviewed entered orders. I agree with the plan of care as outlined in this note, with these additional summaries/recommendations: Patient seen at bedside. He reports he could not sleep last night without his home medications which are now resumed. Patient admitted overnight for intractable hypokalemia, hyponatremia, and metabolic alkalosis. Most likely etiology for these findings is medication induced secondary to chlorthalidone. Patient still having intractable potassium and hyponatremia although alkalosis improved. We will continue to replace potassium and monitor for improvement. If electrolytes worsen we will consider nephrology consultation. Nonetheless I anticipate improvement now that medication has been placed on hold. Continue diabetes management with insulin sliding scale. A1c 7.2%. Continue home Singulair and omeprazole. Continue home statin and blood pressure medications. We will obtain physical therapy consultation as patient is endorsing generalized weakness. Patient and daughter updated on the plan and in agreement. Repeat chemistry panel in AM. Dr. Jim MD
--- NOTE | 2025-02-23 14:16 | PC.SS ---
Initial assessment: this is 79 year old male admitted for hypokalemia. Patient resides at home with . Patient confirmed demographic information. Patient utilizes a cane at home to assist with ambulation. Patient PCP is Valente Whitfield. Patient would like to return home upon discharge. Patient informs his family to transport. Patient assigned his daughterMiguel as his emergency contact. No needs identified at this time. D/c plan: home Next of kin: daughterMiguel
--- NOTE | 2025-02-23 14:20 | PC.SS ---
Rounding note: pending improvement in labs, potassium is low, PT eval pending.
[2025-02-23] MEDS: ASPIRIN EC 81 MG TABEC PO (14:34)
[2025-02-23] MEDS: GABAPENTIN 100 MG CAPSULE PO ×2 (14:34→21:03)
[2025-02-23] MEDS: ESCITALOPRAM OXALATE 10 MG TABLET PO (14:34)
[2025-02-23] MEDS: BACLOFEN 10 MG TABLET PO ×2 (14:34→21:03)
[2025-02-23] MEDS: POTASSIUM CHL 10 mEq IVPB 10 MEQ/100 ML BAG 75 MEQ IV ×4 (14:38→19:32)
[2025-02-23 15:30] LABS: Creatinine MALB Rnd Ur 21 mg/dL (30-125); Microalbumin, Random Urine < 3 mg/L (0-300)
[2025-02-23 16:01] LABS: Albumin, Serum 3.5 gm/dL (3.4-4.8); Anion Gap 7 (7-16); BUN/Creatinine Ratio 11 Ratio (12-20); Blood Urea Nitrogen 10 mg/dL (9-23); Calcium 7.9 mg/dL (8.3-10.6); Calcium (Corrected) 8.3 mg/dL (8.5-10.1); Carbon Dioxide 25.8 mMol/L (20.0-31.0); Chloride 96 mMol/L (98-107); Creatinine (Component) 0.9 mg/dL (0.6-1.3); Estimated Creatinine Clearance 66.7 mL/min (>60); Glucose 224 mg/dL (74-106); Magnesium 2.2 mg/dL (1.6-2.6); Osmolality,Calculated 264 (275-295); Phosphorous 2.1 mg/dL (2.4-5.1); Potassium 3.2 mMol/L (3.4-5.1); Sodium 129 mMol/L (136-145); eGFR > 60 See Note
[2025-02-23] MEDS: FERROUS SULF 325 MG TABLET PO (17:49)
[2025-02-23] MEDS: ATORVASTATIN CALCIUM 20 MG TABLET PO (21:02)
[2025-02-23] MEDS: risperiDONE 1 MG TABLET PO (21:03)
[2025-02-24] VITALS (8 sets, daily range): BP systolic 114–131; BP diastolic 61–81; PULSE 50–78; RESP 12–18; TEMP 35.9–36.4; O2SAT 95–98
[2025-02-24] MEDS: GABAPENTIN 100 MG CAPSULE PO ×3 (05:13→21:32)
[2025-02-24 06:20] LABS: Basophils # (Auto) 0.1 Thou/mm3 (0.0-0.2); Basophils % (Auto) 1 % (0-2.5); Eosinophils # (Auto) 0.2 Thou/mm3 (0.0-0.5); Eosinophils % (Auto) 4 % (0-10); Hemoglobin 12.7 g/dL (13.5-16.0); Immature Granulocytes % (Auto) 2 % (0-0); Immature Granulocytes Auto 0.11 Thou/mm3 (0.00-0.00); Lymphocytes # (Auto) 1.8 Thou/mm3 (1.0-4.8); Lymphocytes % (Auto) 32 % (10-50); Mean Corpuscular HGB Conc 33.4 g/dl (31.0-37.0); Mean Corpuscular Volume 81 fL (80-100); Monocytes # (Auto) 0.8 Thou/mm3 (0.0-0.8); Monocytes % (Auto) 14 % (0-12); Neutrophils # (Auto) 2.6 Thou/mm3 (1.8-7.7); Neutrophils % (Auto) 47 % (37-80); Nucleated Red Blood Cell % 0 /100 WBC (0); Platelet Count 254 Thou/mm3 (140-440); RDW Standard Deviation 39.8 fL (35.1-43.9); Red Blood Count 4.71 Miln/mm3 (4.50-5.90); White Blood Count 5.5 Thou/mm3 (3.8-10.6)
[2025-02-24 06:37] LABS: Alanine Aminotransferase 21 U/L (10-49); Albumin, Serum 3.9 gm/dL (3.4-4.8); Albumin/Globulin Ratio 1.3 (1.2-2.2); Alkaline Phosphatase 71 U/L (46-116); Anion Gap 8 (7-16); Aspartate Amino Transferase 31 U/L (0-34); BUN/Creatinine Ratio 10 Ratio (12-20); Bilirubin,Total 0.5 mg/dL (0.3-1.2); Blood Urea Nitrogen 8 mg/dL (9-23); Calcium 8.3 mg/dL (8.3-10.6); Calcium (Corrected) 8.4 mg/dL (8.5-10.1); Carbon Dioxide 24.8 mMol/L (20.0-31.0); Chloride 97 mMol/L (98-107); Creatinine (Component) 0.8 mg/dL (0.6-1.3); Estimated Creatinine Clearance 75.8 mL/min (>60); Globulin 3.1 gm/dL (2.3-3.5); Glucose 160 mg/dL (74-106); Magnesium 2.1 mg/dL (1.6-2.6); Osmolality,Calculated 262 (275-295); Phosphorous 2.5 mg/dL (2.4-5.1); Potassium 3.3 mMol/L (3.4-5.1); Sodium 130 mMol/L (136-145); eGFR > 60 See Note
[2025-02-24] MEDS: INSULIN LISPRO (AdmeLOG) 1 UNIT/0.01 ML UNIT SC ×3 (07:39→17:04)
[2025-02-24 08:27] LABS: Parathyroid Hormone Intact 69.3 pg/ml (18.5-88.0)
[2025-02-24] MEDS: ENOXAPARIN SOD INJ 40 MG/0.4 ML SYRINGE SC (09:27)
[2025-02-24] MEDS: FERROUS SULF 325 MG TABLET PO ×2 (09:27→17:04)
[2025-02-24] MEDS: ESCITALOPRAM OXALATE 10 MG TABLET PO (09:27)
[2025-02-24] MEDS: ASPIRIN EC 81 MG TABEC PO (09:27)
[2025-02-24] MEDS: POTASSIUM CHL 10 mEq IVPB 10 MEQ/100 ML BAG 100 MEQ IV (09:27)
[2025-02-24] MEDS: BACLOFEN 10 MG TABLET PO ×2 (09:28→21:32)
[2025-02-24] MEDS: cefTRIAXone/D5w 1gm IV premix 1 GM/50 ML BAG IV (09:29)
--- NOTE | 2025-02-24 10:35 | ESPR_ITS ---
Documentation for date of: 02/24/25 Subjective Subjective Interval history: Patient examined at bedside today. No acute overnight events. Patient reports he is doing well. He also reports that he is feeling stronger as well. He is wondering when he needs again to go home. Denies having a headache, diarrhea, vomiting. No complaints at this time. Exam Vital Signs Temp Pulse Resp BP Pulse Ox O2 Del Method 96.6 F L 67 12 131/78 H 97 Room Air 02/24/25 08:00 02/24/25 08:00 02/24/25 08:00 02/24/25 08:00 02/24/25 08:00 02/24/25 08:00 Narrative Exam General: AAOx3, NAD, elderly male, does not look his age HEENT: Moist mucous membranes, conjunctiva clear, EOMI, PERRLA, Cardiovascular: S1, S2, radial pulses +2 bilat, RRR Pulmonary: CTAB bilat no cough, no wheezing GI: No tenderness to light or deep palpitation, no guarding, rigidity, rebound tenderness or distension Extremities: No presence of trace or pitting edema in lower extremities bilaterally, dorsalis pedis pulses +2 bilaterally Neuro: AAOx3, no focal motor or sensory deficits in the UE or LE bilat Psych: Good judgement, thought and behavior. Objective Labs 02/25/25 05:00 02/25/25 05:00 Labs: Laboratory Results - last 24 hr 02/23/25 02/23/25 02/24/25 13:45 15:25 05:36 WBC 5.5 RBC 4.71 Hgb 12.7 L Hct 38.0 L MCV 81 MCH 27.0 MCHC 33.4 RDW Std Deviation 39.8 Plt Count 254 Neut % (Auto) 47 Lymph % (Auto) 32 Nelson % (Auto) 14 H Eos % (Auto) 4 Baso % (Auto) 1 Neut # (Auto) 2.6 Lymph # (Auto) 1.8 Nelson # (Auto) 0.8 Eos # (Auto) 0.2 Baso # (Auto) 0.1 Immature Gran # (Auto) 0.11 H Absolute Nucleated RBC 0.00 Immature Gran % 2 H Nucleated RBC % 0 Sodium 129 L 130 L Potassium 3.2 L 3.3 L Chloride 96 L 97 L Carbon Dioxide 25.8 24.8 Anion Gap 7 8 BUN 10 8 L Creatinine 0.9 0.8 Estim Creat Clear Calc 66.7 75.8 eGFR > 60 > 60 BUN/Creatinine Ratio 11 L 10 L Glucose 224 H 160 H D Calculated Osmolality 264 L 262 L Calcium 7.9 L 8.3 Corrected Calcium 8.3 L 8.4 L Phosphorus 2.1 L 2.5 Magnesium 2.2 2.1 Total Bilirubin 0.5 AST 31 ALT 21 Alkaline Phosphatase 71 Total Protein 7.0 Albumin 3.5 3.9 Globulin 3.1 Albumin/Globulin Ratio 1.3 PTH Intact 69.3 Ur Random Microalbumin < 3 U Creat (Microalbumin) 21 L Microalb/Creat Ratio Quality Measures Quality Measures VTE prophylaxis Advance care planning discussed with:: patient Assessment & Plan Assessment Current Active Medications: Generic Name Dose Route Start Last Admin Trade Name Freq PRN Reason Stop Dose Admin Acetaminophen 650 mg 02/23/25 01:00 Acetaminophen 325 Mg Tablet PO 03/25/25 00:59 Q6H PRN Fever >100.3 or pain 1-3 Aspirin 81 mg 02/23/25 13:45 02/24/25 09:27 Aspirin Ec 81 Mg Tabec PO 03/25/25 13:44 81 mg QDAY AJ Administration Atorvastatin Calcium 20 mg 02/23/25 21:00 02/23/25 21:02 Atorvastatin Calcium 20 Mg Tablet PO 03/25/25 20:59 20 mg HS AJ Administration Baclofen 10 mg 02/23/25 13:45 02/24/25 09:28 Baclofen 10 Mg Tablet PO 03/25/25 13:44 10 mg BID AJ Administration Dextrose 25 ml 02/23/25 01:07 Dextrose 50%-Water Inj 50 Ml Syringe IV 03/25/25 01:06 Q15MIN PRN BG 50-70 responsive npo pt Dextrose 50 ml 02/23/25 01:07 Dextrose 50%-Water Inj 50 Ml Syringe IV 03/25/25 01:06 Q15MIN PRN BG <50 OR BG <70 & pt unresponsive Enoxaparin Sodium 40 mg 02/23/25 09:00 02/24/25 09:27 Enoxaparin Sod Inj 40 Mg/0.4 Ml Syringe SC 03/09/25 08:59 40 mg QDAY AJ Administration Escitalopram Oxalate 10 mg 02/23/25 13:45 02/24/25 09:27 Escitalopram Oxalate 10 Mg Tablet PO 03/25/25 13:44 10 mg QDAY AJ Administration Ferrous Sulfate 325 mg 02/23/25 17:30 02/24/25 09:27 Ferrous Sulf 325 Mg Tablet PO 03/25/25 17:29 325 mg BIDWM AJ Administration Gabapentin 100 mg 02/23/25 14:00 02/24/25 05:13 Gabapentin 100 Mg Capsule PO 03/25/25 13:59 100 mg TID AJ Administration Glucagon 1 mg 02/23/25 01:07 Glucagon Inj 1 Mg Vial IM Q15MIN PRN BG <70, and no IV access Ceftriaxone Sodium/Dextrose 1 gm in 50 mls @ 100 mls/hr 02/23/25 09:00 02/24/25 09:29 Rocephin/D5w 1gm Iv Premix IV 03/02/25 08:59 100 mls/hr QDAY AJ Administration Potassium Chloride 10 meq in 100 mls @ 100 mls/hr 02/24/25 07:58 02/24/25 09:27 Kcl Ivpb IV 02/24/25 11:57 100 mls/hr Q1H AJ Administration Insulin Human Lispro 0 unit 02/23/25 07:30 02/24/25 07:39 Insulin Lispro (Admelog) 1 Unit/0.01 Ml Unit SC 03/25/25 07:29 1 unit AC AJ Administration Protocol Ondansetron HCl 4 mg 02/23/25 01:00 Ondansetron Inj 2 Mg/Ml Inj 2 Ml IV 03/25/25 00:59 Q6H PRN NAUSEA OR VOMITING Protocol Oxycodone/Acetaminophen 1 tab 02/23/25 01:00 Oxycodone/Apap 5/325 Tablet PO 02/28/25 00:59 Q6H PRN PAIN SCALE 4-6 (Moderate Potassium Chloride 40 meq 02/24/25 12:00 Potassium Chloride 20 Meq Tabcr PO 02/24/25 12:01 X1 ONE Risperidone 1 mg 02/23/25 21:00 02/23/25 21:03 Risperidone 1 Mg Tablet PO 03/25/25 20:59 1 mg HS JA Administration Plan Assessment The patient is a 79-year-old Portuguese and Hmong speaking male with previous medical history of hypertension, hyperlipidemia, diabetes, iron deficiency anemia, type 2 diabetes, depression who was sent to the ED from Dr. Whitfield office after labs showed that he has low potassium 2.8 and low sodium 126. He reports feeling general weakness that started approximately 5 days ago, numbness in his feet. Patient is going to be admitted for severe hypokalemia management and treatment. #Severe hypokalemia, improving #Hyponatremia, improving #General Weakness, improving #Lower extremity weakness, improving #Hypochloremic metabolic alkalosis, improving Most likely in setting of diuretic use. Initial potassium in the ED 2.4. No changes noticed on EKG. Patient takes hydrochlorothiazide 25 mg daily at home. Urine electrolytes: Random sodium 74 (N), random potassium 16 (N), chloride 40 (low) Repleted another 40 oral and IV today of potassium, potassium 3.3 today Duration of patient's water pill including hydrochlorothiazide peaks around 15 hours, however effect of medicine if this was causing hypokalemia should have worn off by now Plan: ? Continue to replete potassium as needed ? Follow-up renal panel at 4 PM ? Monitor daily CMP ? Consider nephrology consult if hypokalemia persists ? Holding diuresis ? PT eval #Complicated UTI Patient reports dysuria, increased urinary frequency. UA positive for UTI Plan: ? Ceftriaxone 1 g daily ? Urine cultures pending # Mqz-rmhvdan-dcgfypyts type 2 diabetes, poorly controlled Glucose on admission 247. A1c 7.2 on this admission. A1c on 05/19 7.9. Patient takes Jardiance 25 mg daily, glipizide 10 mg BID at home Plan: ? Hold home meds ? Insulin sliding scale with Accu-Cheks ? Hypoglycemia protocol #History of hypertension Patient takes amlodipine 5 mg daily at home Plan: ? Will hold blood pressure medications for now due to normal blood pressure #Health Maintenance Disposition: Telemetry DVT prophylaxis: Lovenox GI prophylaxis: None indicated at this time Diet: Carb consistent CODE STATUS: DNR Patient seen and care discussed with my attending physician, Dr. Jim Keita, PGY-1 Attending Provider Attestation/Addendum I have examined the patient, reviewed labs and imaging findings, discussed the case with the resident(s), and reviewed entered orders. I agree with the plan of care as outlined in this note, with these additional summaries/recommendations: Patient seen at bedside. No acute overnight events. He reports he slept good last night. Patient originally admitted for intractable hypokalemia, hyponatremia, and metabolic alkalosis. Intractable hypokalemia has improved although not resolved. We will continue to replace potassium today and repeat level this afternoon. Still strongly suspect electrolyte abnormalities are secondary to hydrochlorothiazide. Hyponatremia slowly improving and sodium now 130 this morning. Patient should avoid hydrochlorothiazide/chlorthalidone moving forward. Patient to be evaluated by physical therapist today for generalized weakness. If electrolytes continue to improve then anticipate discharge in the next [address] Jim MD
[2025-02-24] MEDS: POTASSIUM CHL 10 mEq IVPB 10 MEQ/100 ML BAG 75 MEQ IV ×3 (10:39→14:23)
--- NOTE | 2025-02-24 11:12 | PC.SS ---
Addendum entered by MATIAS Suarez 02/24/25 15:04: Rounding note: treating hypokalemia, keeping patient one more day. Original Note: SS follow up: per Basilio from PT, patient is ambulatory and there are no needs.
[2025-02-24] MEDS: POTASSIUM CHLORIDE 20 mEq TABCR 40 MEQ PO (14:23)
--- NOTE | 2025-02-24 14:26 | PC.NURSE ---
Called pharmacy about oral and IV potassium, ok to give both at same time.
--- NOTE | 2025-02-24 14:38 | PC.PT ---
PT eval only. Patient is xI with bed mobility, transfers, and ambulation using his cane. Patient is safe to ambulate to the bathroom and in the hallways with the single point cane and 1 staff assistance for help with managing the IV pole. RN made aware.
[2025-02-24 16:24] LABS: Albumin, Serum 3.6 gm/dL (3.4-4.8); Anion Gap 7 (7-16); BUN/Creatinine Ratio 11 Ratio (12-20); Blood Urea Nitrogen 11 mg/dL (9-23); Calcium 8.2 mg/dL (8.3-10.6); Calcium (Corrected) 8.5 mg/dL (8.5-10.1); Carbon Dioxide 26.3 mMol/L (20.0-31.0); Chloride 98 mMol/L (98-107); Estimated Creatinine Clearance 60.7 mL/min (>60); Glucose 192 mg/dL (74-106); Osmolality,Calculated 267 (275-295); Phosphorous 2.1 mg/dL (2.4-5.1); Potassium 3.7 mMol/L (3.4-5.1); Sodium 131 mMol/L (136-145); eGFR > 60 See Note
[2025-02-24] MEDS: risperiDONE 1 MG TABLET PO (21:33)
[2025-02-24] MEDS: ATORVASTATIN CALCIUM 20 MG TABLET PO (21:33)
[2025-02-25] VITALS (7 sets, daily range): BP systolic 115–133; BP diastolic 70–80; PULSE 62–79; RESP 15–96; TEMP 35.8–36.3; O2SAT 96–99; BMI 29.4
[2025-02-25] MEDS: GABAPENTIN 100 MG CAPSULE PO (05:30)
[2025-02-25 06:24] LABS: Basophils # (Auto) 0.1 Thou/mm3 (0.0-0.2); Basophils % (Auto) 1 % (0-2.5); Eosinophils # (Auto) 0.2 Thou/mm3 (0.0-0.5); Eosinophils % (Auto) 4 % (0-10); Hematocrit 36.3 % (41.0-53.0); Hemoglobin 12.3 g/dL (13.5-16.0); Immature Granulocytes % (Auto) 2 % (0-0); Immature Granulocytes Auto 0.12 Thou/mm3 (0.00-0.00); Lymphocytes # (Auto) 2.2 Thou/mm3 (1.0-4.8); Lymphocytes % (Auto) 38 % (10-50); Mean Corpuscular HGB Conc 33.9 g/dl (31.0-37.0); Mean Corpuscular Hemoglobin 26.9 pg (25.0-35.0); Mean Corpuscular Volume 79 fL (80-100); Monocytes # (Auto) 0.7 Thou/mm3 (0.0-0.8); Monocytes % (Auto) 12 % (0-12); Neutrophils # (Auto) 2.5 Thou/mm3 (1.8-7.7); Neutrophils % (Auto) 43 % (37-80); Nucleated Red Blood Cell % 0 /100 WBC (0); Platelet Count 282 Thou/mm3 (140-440); RDW Standard Deviation 38.5 fL (35.1-43.9); Red Blood Count 4.57 Miln/mm3 (4.50-5.90); White Blood Count 5.8 Thou/mm3 (3.8-10.6)
[2025-02-25 06:39] LABS: Alanine Aminotransferase 23 U/L (10-49); Albumin, Serum 3.7 gm/dL (3.4-4.8); Albumin/Globulin Ratio 1.3 (1.2-2.2); Alkaline Phosphatase 71 U/L (46-116); Anion Gap 9 (7-16); Aspartate Amino Transferase 27 U/L (0-34); BUN/Creatinine Ratio 13 Ratio (12-20); Bilirubin,Total 0.5 mg/dL (0.3-1.2); Blood Urea Nitrogen 10 mg/dL (9-23); Calcium 8.4 mg/dL (8.3-10.6); Calcium (Corrected) 8.6 mg/dL (8.5-10.1); Carbon Dioxide 25.4 mMol/L (20.0-31.0); Chloride 100 mMol/L (98-107); Creatinine (Component) 0.8 mg/dL (0.6-1.3); Estimated Creatinine Clearance 74.1 mL/min (>60); Globulin 2.8 gm/dL (2.3-3.5); Glucose 163 mg/dL (74-106); Magnesium 1.7 mg/dL (1.6-2.6); Osmolality,Calculated 271 (275-295); Phosphorous 2.4 mg/dL (2.4-5.1); Potassium 3.5 mMol/L (3.4-5.1); Sodium 134 mMol/L (136-145); Total Protein 6.5 gm/dL (5.7-8.2); eGFR > 60 See Note
[2025-02-25] MEDS: INSULIN LISPRO (AdmeLOG) 1 UNIT/0.01 ML UNIT SC ×2 (07:48→11:46)
[2025-02-25] MEDS: ENOXAPARIN SOD INJ 40 MG/0.4 ML SYRINGE SC (08:29)
[2025-02-25] MEDS: ESCITALOPRAM OXALATE 10 MG TABLET PO (08:29)
[2025-02-25] MEDS: BACLOFEN 10 MG TABLET PO (08:29)
[2025-02-25] MEDS: FERROUS SULF 325 MG TABLET PO (08:29)
[2025-02-25] MEDS: ASPIRIN EC 81 MG TABEC PO (08:29)
[2025-02-25] MEDS: cefTRIAXone/D5w 1gm IV premix 1 GM/50 ML BAG IV (08:30)
--- NOTE | 2025-02-25 09:38 | PC.SS ---
Update: Plan is for the patient to discharge home today.
[2025-02-25] MEDS: FOSFOMYCIN PWD 3 GM PACKET (NON-FORMULARY) PO (11:45)
--- NOTE | 2025-02-25 13:00 | PC.NURSE ---
Interpretor Eder [id number] used for Hebrew interpretation. Grandsons at bedside for discharge instructions. Pt and family verbalized understanding of follow up appt with pcp. Pt and family verablized feel safe and ready for discharge. Pt and family verbalized understanding of home medication changes. Dr. Keita called and verbalized nothing else is needed for discharge and ok to discharge home.
--- NOTE | 2025-02-25 13:07 | ESDS_ITS ---
<Statement entered by Toby Yanez MD - 02/25/25 22:27> Patient was seen examined at bedside. Agree on the discharge plan in this note. - Patient's plan and care discussed with my attending, Dr. Jim Yanez MD Internal Medicine PGY-2 Planned Discharge Date 02/25/25 DS: Providers Provider Date of admission: 02/23/25 04:31 Primary care physician: Valente Whitfield MD Admitting Provider: Irma Lowe MD Attending Provider on Admission: Misha Fernandez MD Consults: 02/23/25 10:33 Referral Physical Therapy Routine Comment: Physician Instructions: Attending Provider on DC: Misha Fernandez MD Discharging Provider: Misha Fernandez MD DS: Diagnosis Problem List Completed Was Problem List Reviewed/Reconciled?: Yes Hospital Course Hospital Course Hospital course: Ophelia is a 79-year-old Danish and Hmong speaking male with PMHx of hypertension, hyperlipidemia, diabetes, iron deficiency anemia, type 2 diabetes, depression who was admitted with severe hypokalemia, generalized weakness and UTI. Patient came into the ED with unremarkable vitals. He was worked up on found to have a white count of 8, hemoglobin 13.4, platelets 264, coagulation panel unremarkable, sodium 126, potassium 2.4, chloride 82, bicarb 31, BUN/creatinine 11 and 0.8 respectively, glucose 247. Urinalysis showed plus for glucose and leukocyte esterase positive, pyuria and +1 bacteria. Patient given 40 mill equivalents of oral potassium, 20 IV, 1 L of fluids, started on 1 g Rocephin. Repeat potassium panel in ED showed potassium 2.4. Medicine was consulted patient was admitted to the floors. While on the floors patient was repleted with potassium. There was question upon patient on what medicines he takes and he did endorse that he takes hydrochlorothiazide. There was chlorthalidone found on his med list and is unsure if the patient was taking hydrochlorothiazide and chlorthalidone together. Patient's magnesium was also unremarkable. Nevertheless he was advised to the patient to stop taking these medicines and to follow-up with his primary care doctor in regards to his hypokalemia and adjustment of blood pressure medicines. Upon discharge patient's potassium had normalized. He was seen by physical therapy who recommended discharge at home. He was also having symptomatic UTI with dysuria and was being treated with Rocephin, urine cultures did show contamination, however patient was given 1 dose of fosfomycin upon discharge as his symptoms resolved. Discharge Instructions: Avoid Taking Hydrocholorthiazide and Chlorthalidone as this could of caused your low potassium Take medicines as prescribed Follow up with PCP within one week Return to ER if your symptoms return or worsen Problem list: #Severe hypokalemia #Hyponatremia #General Weakness #Lower extremity weakness #Hypochloremic metabolic alkalosis #UTI #Maz-xftnija-dgeddqfoj type 2 diabetes #History of hypertension #Iron deficiency anemia Discharge summary was reviewed with my attending Dr. Jim Keita, PGY-1 Time Spent with Patient Time attestation: Total time spent providing and/or coordinating discharge services: Time spent: Greater than 30 minutes Exam Vital Signs Temp Pulse Resp BP Pulse Ox O2 Del Method 96.9 F 67 19 122/75 97 Room Air 02/25/25 11:55 02/25/25 11:55 02/25/25 11:55 02/25/25 11:55 02/25/25 11:55 02/25/25 11:55 Narrative Exam General: AAOx3, NAD, elderly male, does not look his age HEENT: Moist mucous membranes, conjunctiva clear, EOMI, PERRLA, Cardiovascular: S1, S2, radial pulses +2 bilat, RRR Pulmonary: CTAB bilat no cough, no wheezing GI: No tenderness to light or deep palpitation, no guarding, rigidity, rebound tenderness or distension Extremities: No presence of trace or pitting edema in lower extremities bilaterally, dorsalis pedis pulses +2 bilaterally Neuro: AAOx3, no focal motor or sensory deficits in the UE or LE bilat Psych: Good judgement, thought and behavior. Discharge Plan Plan Patient Disposition: HOME (Self Care) Patient condition on transfer: Stable Health Concerns: Discharge Instructions: Avoid Taking Hydrocholorthiazide and Chlorthalidone as this could of caused your low potassium Take Medicines as prescribed Follow up with PCP within one week Return to ER if your symptoms return or worsen Prescriptions/Referrals Prescriptions/Med Rec: Continued montelukast [Singulair] 10 MG tablet 10 mg PO QHSPRN PRN (Reason: ASTHMA) Qty: 0 atorvastatin [Lipitor] 20 MG tablet 20 mg PO HS Qty: 0 risperidone [Risperdal] 1 MG tablet 1 mg PO HS Qty: 0 omeprazole 20 MG tablet,delayed release (DR/EC) 20 mg PO QDAY Qty: 0 Aspirin (Aspir 81) 81 MG TABLET.DR 81 mg PO QDAY Qty: 0 baclofen 10 MG tablet 10 mg PO BID Qty: 0 ferrous sulfate [Feosol] 1 TAB tablet 325 mg PO BIDWM Qty: 0 levocetirizine 5 mg tablet 5 mg PO QDAY Patient Comments: TAKE 1 TABLET BY MOUTH ONCE DAILY gabapentin 100 mg capsule 100 mg PO TID Patient Comments: TAKE 1 CAPSULE BY MOUTH THREE TIMES DAILY amlodipine 5 mg tablet 5 mg PO QDAY Patient Comments: TAKE 1 TABLET BY MOUTH ONCE DAILY AT BEDTIME Jardiance 25 mg tablet 25 mg PO QDAY Patient Comments: TAKE 1 TABLET BY MOUTH ONCE DAILY IN THE MORNING escitalopram oxalate 10 mg tablet 10 mg PO QDAY Patient Comments: TAKE 1 TABLET BY MOUTH ONCE DAILY glipizide 10 mg tablet 10 mg PO BID Patient Comments: TAKE 1 TABLET BY MOUTH TWICE DAILY Discontinued hydrochlorothiazide 12.5 MG tablet 25 mg PO QAM Qty: 0 Referrals: Valente Whitfield MD [Primary Care Provider] - Patient/Caregiver Discharge Instructions Education Materials: Urinary Tract Infections in Men, Discharge Instructions for ..., When to Use Antibiotics Print Language: Danish Stand Alone Forms: Liane Award Info., Patient Portal Info Letter Discharge Order Discharge Orders: Discharge (Routine); Ordered 02/25/25 Ordered By: Herbert Keita Quality Discharge Quality Measures VTE prophylaxis (Lovenox) Attestestation MD Attestation I have examined the patient, reviewed labs and imaging findings, discussed the case with the resident(s), and reviewed entered orders. I agree with the plan of care as outlined in this note. Time Spent: [address] Jim MD
== END 2025-02-25 13:16 | disposition home or self-care (01) | DRG 641 ==
LOC: SERX 02-23 00:38 → SERHOLD 02-23 04:48 → S2NX 02-23 06:30
PROVIDERS: Nurse Practitioner Primary Care; Admitting Provider Student in an Organized Health Care Education/Training Program; Emergency Provider Emergency Medicine; PCP Family Medicine; Visit Provider Student in an Organized Health Care Education/Training Program
DX: E87.6 Hypokalemia (principal); N39.0 Urinary tract infection, site not specified; F32.A Depression, unspecified; E87.1 Hypo-osmolality and hyponatremia; I10 Essential (primary) hypertension; E87.3 Alkalosis; D50.9 Iron deficiency anemia, unspecified; E11.65 Type 2 diabetes mellitus with hyperglycemia; E78.00 Pure hypercholesterolemia, unspecified; E87.5 Hyperkalemia; E87.8 Other disorders of electrolyte and fluid balance, not elsewhere classified; Z66 Do not resuscitate; Z79.84 Long term (current) use of oral hypoglycemic drugs; Z79.899 Other long term (current) drug therapy
CPT/HCPCS: 36415; 71046; 80048; 80053; 80069; 81001; 82043; 82436; 82570; 83036; 83735; 83880; 83970; 84100; 84132; 84133; 84300; 84484; 85025; 85610; 85730; 87086; 93005; 96365; 96367; 96368; 97161; 99285; J0696; J1650; J1815; J3475; J3480; J7030; A9270

== ENCOUNTER → 2025-09-19 | Outpatient (CLI) | payer OTHER, MEDICAID, SELFPAY ==
--- NOTE | 2025-09-19 09:58 | XR_ITS ---
EXAMINATION: PA lateral chest 2 views TECHNIQUE: Upright PA and lateral chest 2 views Date and time: September 19, 2025, 10:40 a.m., comparison February 22, 2025 INDICATIONS: Coughing 4 days chest pain 3 days. FINDINGS: Significant pneumonia right upper lobe Mild pneumonia right lower lobe Mild prominence left ventricle Significant osteopenia IMPRESSION: Significant right lung pneumonia
== END | disposition home or self-care (01) ==
LOC: CDIM 09:37
PROVIDERS: PCP Family Medicine; Referring Provider Family Medicine; Visit Provider Family Medicine
DX: J18.9 Pneumonia, unspecified organism (principal)
CPT/HCPCS: 71046

== ENCOUNTER 2025-10-12 13:58 | Inpatient (IN) | payer MEDICARE, MEDICAID, SELFPAY ==
[2025-10-12] VITALS (8 sets, daily range): BP systolic 109–144; BP diastolic 69–76; PULSE 75–108; RESP 16–18; TEMP 36.5–37; O2SAT 95–98; BMI 28.5; BMI 28.0
--- NOTE | 2025-10-12 14:23 | PD.EDRME ---
Rapid Medical Screening Exam RME Arrival date/time: 10/12/25 13:58 80-year-old male presents to the emergency department for complaints of blood in his stool patient reports up until 2 months ago he was drinking alcohol heavily Chief Complaint: General Adult/Misc Complain Vital signs: Vital Signs Temperature 98.6 F 10/12/25 14:15 Pulse Rate 108 H 10/12/25 14:15 Respiratory Rate 18 10/12/25 14:15 Blood Pressure 109/69 10/12/25 14:15 Pulse Oximetry (%) 96 10/12/25 14:15 Oxygen Delivery Method Room Air 10/12/25 14:15 Vital signs reviewed by provider: Yes Exam: On exam patient does not appear ill or toxic hemodynamically stable Clinical Impression: Lab work and imaging ordered
--- NOTE | 2025-10-12 14:40 | EDNOTE_ITS ---
<Statement entered by Belle Aquino MD - 10/27/25 07:24> As co-signing physician, I was present and available for consult prn. I concur with the plan and care as documented by the midlevel provider. ED General RME/HPI General Chief complaint: General Adult/Misc Complain Stated complaint: BLOOD DURING BOWEL MOVEMENT Time Seen by Provider: 10/12/25 14:31 Arrival date/time: 10/12/25 13:58 80-year-old male patient with significant history of chronic alcohol abuse in the past, been sober for the last 2 months, diabetes mellitus hypertension, came in for evaluation regarding black tarry stool since earlier today, severity moderate. Patient denies any vomiting denies any abdominal pain denies any dizziness denies other complaints no medication was taken prior to ER visit. RME / HPI RME / HPI narrative: 10/12/25 13:58 80-year-old male presents to the emergency department for complaints of blood in his stool patient reports up until 2 months ago he was drinking alcohol heavily Exam: On exam patient does not appear ill or toxic hemodynamically stable Impression: Lab work and imaging ordered Related Data Home Medications ?Medication ?Instructions ?Recorded ?Confirmed atorvastatin 20 mg tablet (Lipitor) 20 mg PO HS CHOLES TROL ##0 11/30/13 02/23/25 montelukast 10 mg tablet 10 mg PO QHSPRN PRN ASTHMA # #0 11/30/13 02/23/25 (Singulair) omeprazole 20 mg tablet,delayed 20 mg PO QDAY GERD ##0 11/30/13 02/23/25 release risperidone 1 mg tablet (Risperdal) 1 mg PO HS #0 tabs 11/30/13 02/23/25 Aspirin (Aspir 81) 81 mg PO QDAY ##0 09/03/17 0 02/23/25 baclofen 10 mg tablet 10 mg PO BID #0 tabs 7 02/23/25 ferrous sulfate 325 mg (65 mg 325 mg PO BIDWM #0 tabs 09/03/17 02/23/25 iron) tablet (Feosol) amlodipine 5 mg tablet 5 mg PO QDAY 02/23/25 empagliflozin 25 mg tablet 25 mg PO QDAY 02/23/2501/27 (Jardiance) escitalopram oxalate 10 mg tablet 10 mg PO QDAY 02/23/25 gabapentin 100 mg capsule 100 mg PO TID 02/23/2502/23 glipizide 10 mg tablet 10 mg PO BID 02/23/25 levocetirizine 5 mg tablet 5 mg PO QDAY 02/23/2502/23 Allergies Allergy/AdvReac Type Severity Reaction Status Date / Time Penicillins Allergy Severe Anaphylaxis Verified 10/12/25 14:00 Review of Systems Review of Systems Narrative Review of Systems: Review of system reviewed and within normal limits except mentioned in HPI ED Exam Narrative Physical exam: VITAL SIGNS: Reviewed. GENERAL APPEARANCE: Alert and interactive, follows commands, no acute distress, HEAD AND FACE: Non-traumatic. ENT: PERRL, pale conjunctiva, eyelid no trauma, Mucous membrane moist. NECK: Supple, nontender, no nuchal rigidity. CHEST: No tenderness, no crepitus, no paradoxical movement, no retractions. LUNGS: Clear, well ventilated, symmetric, no rales, no wheezing, no ronchi, no stridor, good breath sounds bilaterally. HEART: Regular rate, regular rhythm, no murmur, no gallops. ABDOMEN: Soft, positive bowel sounds, nondistended, no guarding, nontender, no rebound, no masses, RECTAL: Rectal exam was done by me, and I noticed black tarry stool on the examining finger strongly positive for occult blood GENITAL: Deferred. NEUROLOGICAL: Gross motor function intact sensory function intact, Appropriate for age. MUSCULOSKELETAL: low back nontender, full range of motion. EXTREMITIES: Nontender, full range of motion. SKIN: Color pale, dry, no rash, no lacerations, no abrasions, no contusions. LYMPHATICS: Deferred. Course Quality Measures none Orders Category Date Time Status COVID-19 Screening Questionnaire NOW Care 10/12/25 15:47 Active Decision to Admit X1 Care 10/12/25 15:47 Active Insert IV NOW Care 10/12/25 14:22 Active Occult Blood,Stool (Nursing) ONCE Care 10/12/25 14:42 Active Transfuse,blood/blood products ONCE Care 10/12/25 14:38 Active Consult to Gastroenterology Stat Cons 10/12/25 15:42 Ordered Ammonia Stat Lab 10/12/25 14:53 Completed CBC Stat Lab 10/12/25 14:53 Completed Comprehensive Metabolic Panel Stat Lab 10/12/25 14:53 Completed Lipase Stat Lab 10/12/25 14:53 Completed Partial Thromboplastin Time Stat Lab 10/12/25 14:53 Completed Prothrombin Time with INR Stat Lab 10/12/25 14:53 Completed Type and Screen Stat Lab 10/12/25 14:53 Results UA, C/S IF [Urinalysis, C/S if Indicated] Stat Lab 10/12/25 14:40 Ordered prbc [Red Blood Cells] Stat Lab 10/12/25 14:53 Results Octreotide Acet Inj [SandoSTATIN Inj] Med 10/12/25 14:38 Discontinued 50 mcg IV X1 ONE Pantoprazole Inj [Protonix Inj] Med 10/12/25 14:38 Discontinued 80 mg IVP X1 ONE Sodium Chloride 0.9% [Ns] 100 ml Med 10/12/25 14:45 Active Octreotide Acet Inj [SandoSTATIN Inj] 1,000 mcg IV 50 mcg/hr Vital Signs Vital signs: Vital Signs Temperature 98.6 F 10/12/25 14:15 Pulse Rate 108 H 10/12/25 14:15 Respiratory Rate 18 10/12/25 14:15 Blood Pressure 109/69 10/12/25 14:15 Pulse Oximetry (%) 96 10/12/25 14:15 Oxygen Delivery Method Room Air 10/12/25 14:15 Discharge Plan Plan Patient Disposition: Admit Acute Care w/in Hospital Discharge Disposition comment: Guarded Prescriptions/Referrals Prescriptions/Med Rec: No Action montelukast [Singulair] 10 MG tablet 10 mg PO QHSPRN PRN (Reason: ASTHMA) Qty: 0 atorvastatin [Lipitor] 20 MG tablet 20 mg PO HS Qty: 0 risperidone [Risperdal] 1 MG tablet 1 mg PO HS Qty: 0 omeprazole 20 MG tablet,delayed release (DR/EC) 20 mg PO QDAY Qty: 0 Aspirin (Aspir 81) 81 MG TABLET.DR 81 mg PO QDAY Qty: 0 baclofen 10 MG tablet 10 mg PO BID Qty: 0 ferrous sulfate [Feosol] 1 TAB tablet 325 mg PO BIDWM Qty: 0 levocetirizine 5 mg tablet 5 mg PO QDAY Patient Comments: TAKE 1 TABLET BY MOUTH ONCE DAILY gabapentin 100 mg capsule 100 mg PO TID Patient Comments: TAKE 1 CAPSULE BY MOUTH THREE TIMES DAILY amlodipine 5 mg tablet 5 mg PO QDAY Patient Comments: TAKE 1 TABLET BY MOUTH ONCE DAILY AT BEDTIME Jardiance 25 mg tablet 25 mg PO QDAY Patient Comments: TAKE 1 TABLET BY MOUTH ONCE DAILY IN THE MORNING escitalopram oxalate 10 mg tablet 10 mg PO QDAY Patient Comments: TAKE 1 TABLET BY MOUTH ONCE DAILY glipizide 10 mg tablet 10 mg PO BID Patient Comments: TAKE 1 TABLET BY MOUTH TWICE DAILY Problem List Clinical Impression: Acute upper gastrointestinal bleeding, Anemia Patient/Caregiver Discharge Instructions Print Language: Fijian Stand Alone Forms: Adaptive Planning Info., Patient Portal Info Letter MDM Narrative MDM hospital course (for use when minimal MDM required): 80-year-old male patient with significant history of chronic alcohol abuse in the past, been sober for the last 2 months, diabetes mellitus hypertension, came in for evaluation regarding black tarry stool since earlier today, severity moderate. Patient denies any vomiting denies any abdominal pain denies any dizziness denies other complaints no medication was taken prior to ER visit. Patient's workup is significant for anemia of 9.1 hematocrit of 28.9 platelet is normal. There is of the labs unremarkable. Patient was started on IV Protonix, IV Sandostatin IV bolus and drip. I consulted Dr. Fong, GI specialist on-call, discussed the case, and thank you Dr. Fong who will see the patient. Spoke with hospitalist, who admitted the patient. Medication Administration(s) Medication Administration History Octreotide Acetate 1,000 mcg/ (Sodium Chloride) 102 mls @ 5.1 mls/hr IV .Q20H [facility]; Protocol Stop: 10/17/25 14:44 Discontinued Medications Octreotide Acetate (Octreotide Acet Inj 50 Mcg/Ml Vial) 50 mcg IV X1 ONE Stop: 10/12/25 14:39 Pantoprazole Sodium (Pantoprazole Inj 40 Mg Vial) 80 mg IVP X1 ONE Stop: 10/12/25 14:39 Diagnosis Differential Diagnosis ED Complaint MDM: Upper GI bleed, anemia, lower GI bleed Diagnoses ruled out and/or further discussions: Upper GI bleed, anemia
[2025-10-12 15:12] LABS: Basophils # (Auto) 0.1 Thou/mm3 (0.0-0.2); Basophils % (Auto) 1 % (0-2.5); Eosinophils # (Auto) 0.1 Thou/mm3 (0.0-0.5); Eosinophils % (Auto) 1 % (0-10); Hematocrit 28.9 % (41.0-53.0); Hemoglobin 9.1 g/dL (13.5-16.0); Immature Granulocytes Auto 0.12 Thou/mm3 (0.00-0.00); Lymphocytes # (Auto) 2.6 Thou/mm3 (1.0-4.8); Lymphocytes % (Auto) 27 % (10-50); Mean Corpuscular HGB Conc 31.5 g/dl (31.0-37.0); Mean Corpuscular Hemoglobin 24.3 pg (25.0-35.0); Mean Corpuscular Volume 77 fL (80-100); Monocytes # (Auto) 0.9 Thou/mm3 (0.0-0.8); Monocytes % (Auto) 9 % (0-12); Neutrophils # (Auto) 5.9 Thou/mm3 (1.8-7.7); Neutrophils % (Auto) 62 % (37-80); Nucleated Red Blood Cell # 0.00 Thou/mm3 (0.00-0.00); Nucleated Red Blood Cell % 0 /100 WBC (0); Platelet Count 314 Thou/mm3 (140-440); RDW Standard Deviation 47.2 fL (35.1-43.9); Red Blood Count 3.75 Miln/mm3 (4.50-5.90); White Blood Count 9.5 Thou/mm3 (3.8-10.6)
[2025-10-12 15:18] LABS: INR 1.0 (0.9-1.3); Partial Thromboplastin Time 24.6 Seconds (22.0-36.0); Prothrombin Time 10.9 Seconds (9.0-12.2)
[2025-10-12 15:22] LABS: Alanine Aminotransferase 22 U/L (10-49); Albumin, Serum 4.0 gm/dL (3.4-4.8); Albumin/Globulin Ratio 1.5 (1.2-2.2); Alkaline Phosphatase 68 U/L (46-116); Anion Gap 12 (7-16); Aspartate Amino Transferase 18 U/L (0-34); BUN/Creatinine Ratio 25 Ratio (12-20); Bilirubin,Total 0.2 mg/dL (0.3-1.2); Blood Urea Nitrogen 25 mg/dL (9-23); Calcium 8.6 mg/dL (8.3-10.6); Calcium (Corrected) 8.6 mg/dL (8.5-10.1); Carbon Dioxide 24.2 mMol/L (20.0-31.0); Chloride 100 mMol/L (98-107); Creatinine (Component) 1.0 mg/dL (0.6-1.3); Estimated Creatinine Clearance 60.6 mL/min (>60); Globulin 2.7 gm/dL (2.3-3.5); Glucose 195 mg/dL (74-106); Lipase 35 U/L (12-53); Osmolality,Calculated 281 (275-295); Potassium 3.8 mMol/L (3.4-5.1); Sodium 136 mMol/L (136-145); Total Protein 6.7 gm/dL (5.7-8.2); eGFR > 60 See Note
[2025-10-12 15:23] LABS: Ammonia 13 uMol/L (11-32)
--- NOTE | 2025-10-12 15:48 | PD.RESCONSUL ---
HPI Consult Narrative History of present illness: 80-year-old male with a medical history of hypertension, hyperlipidemia, type 2 diabetes, iron deficiency anemia, and depression, presents with a 3-4 episode history of melena that began this morning, progressively worsening throughout the afternoon. The patient reports being unable to quantify the amount but notes that this is a new symptom. He denies any previous EGD or colonoscopy and has no known history of liver disease. He has a significant history of alcohol use, drinking approximately 8 beers per day for the past 5 years, but has been sober for the last few months. He denies NSAID use, hematochezia, hemoptysis, or hematemesis. The patient is not on any anticoagulation therapy. Past medical history: As stated above. Past surgical history: No significant GI surgery Allergies: Penicillins (anaphylaxis) Family history: Noncontributory. Social history: No alcohol use recently, remote smoker with 10-qtif-cmmb history, no illicit drug use. GI consulted for evaluation and management of GI bleed. cc:: cc: Review of Systems Review of Systems Systems Reviewed: All systems reviewed, normal except as documented Exam Vital Signs Temp Pulse Resp BP Pulse Ox O2 Del Method 98.6 F 108 H 18 109/69 96 Room Air 10/12/25 14:15 10/12/25 14:15 10/12/25 14:15 10/12/25 14:15 10/12/25 14:15 10/12/25 14:15 Narrative Exam General: AOx3, no acute distress, able to speak full sentences HEENT: NC/AT, mucous membranes moist, bilateral sclera anicteric Cardiovascular: regular rate and rhythm, S1/S2 present, no murmurs appreciated Pulmonary: clear to auscultation bilaterally, no rales/rhonchi/wheezes Abdominal: soft, non-tender, distended from obesity, no rebound/guarding, normal bowel sounds present Musculoskeletal: normal ROM, no peripheral edema Skin: warm and dry, intact, no rashes, Neuro: CN II-XII intact, no focal deficits Results Labs 10/12/25 14:53 10/12/25 14:53 Labs: Short CBC 10/12/25 Range/Units 14:53 WBC 9.5 (3.8-10.6) Thou/mm3 Hgb 9.1 L (13.5-16.0) g/dL Hct 28.9 L (41.0-53.0) % Plt Count 314 (140-440) Thou/mm3 BMP 10/12/25 14:53 Sodium 136 Potassium 3.8 Chloride 100 Carbon Dioxide 24.2 BUN 25 H Creatinine 1.0 Glucose 195 H Calcium 8.6 Liver Function 10/12/25 Range/Units 14:53 Total Bilirubin 0.2 L (0.3-1.2) mg/dL AST 18 (0-34) U/L ALT 22 (10-49) U/L Alkaline Phosphatase 68 (46-116) U/L Albumin 4.0 (3.4-4.8) gm/dL Quality Measures Quality Measures VTE prophylaxis Advance care planning discussed with:: patient Medications Home Medications and Allergies Home Medications ?Medication ?Instructions ?Recorded ?Confirmed ?Type atorvastatin 20 mg tablet (Lipitor) 20 mg PO HS CHOLESTROL ##0 11/30/13 02/23/25 History montelukast 10 mg tablet 10 mg PO QHSPRN PRN ASTHMA ##0 11/30/13 02/23/25 History (Singulair) omeprazole 20 mg tablet,delayed 20 mg PO QDAY GERD ##0 11/30/13 02/23/25 History release risperidone 1 mg tablet (Risperdal) 1 mg PO HS #0 tabs 11/30/13 02/23/25 History Aspirin (Aspir 81) 81 mg PO QDAY ##0 09/03/17 02/23/25 History baclofen 10 mg tablet 10 mg PO BID #0 tabs 09/03/17 02/23/25 History ferrous sulfate 325 mg (65 mg 325 mg PO BIDWM #0 tabs 09/03/17 02/23/25 History iron) tablet (Feosol) amlodipine 5 mg tablet 5 mg PO QDAY 02/23/25 02/23/25 History empagliflozin 25 mg tablet 25 mg PO QDAY 02/23/25 02/23/25 History (Jardiance) escitalopram oxalate 10 mg tablet 10 mg PO QDAY 02/23/25 02/23/25 History gabapentin 100 mg capsule 100 mg PO TID 02/23/25 02/23/25 History glipizide 10 mg tablet 10 mg PO BID 02/23/25 02/23/25 History levocetirizine 5 mg tablet 5 mg PO QDAY 02/23/25 02/23/25 History Allergies Allergy/AdvReac Type Severity Reaction Status Date / Time Penicillins Allergy Severe Anaphylaxis Verified 10/12/25 14:00 Visit Medications Octreotide Acetate 1,000 mcg/ (Sodium Chloride) 102 mls @ 5.1 mls/hr IV .Q20H [facility]; Protocol Stop: 10/17/25 14:44 Discontinued Medications Octreotide Acetate (Octreotide Acet Inj 50 Mcg/Ml Vial) 50 mcg IV X1 ONE Stop: 10/12/25 14:39 Pantoprazole Sodium (Pantoprazole Inj 40 Mg Vial) 80 mg IVP X1 ONE Stop: 10/12/25 14:39 Assessment & Plan Plan 80-year-old male with a medical history of hypertension, hyperlipidemia, type 2 diabetes, iron deficiency anemia, and depression, presents with a 3-4 episode history of melena. GI consulted for evaluation and management of GI bleed. #GI Bleed, Upper vs Lower 0.5 -0.7L of bloody BM on the morning of 10/12 for the first time and worsening in the afternoon. 3-4 episodes of melena today Hgb at presentation 9.1, hemoglobin baseline is around 12 No previous EGD or colonoscopy history No liver disease, however extensive alcohol history in the past No Significant NSAID use No thrombocytopenia present No coagulopathy present Hemodynamically stable, no supplemental oxygen use 1 unit packed RBC ordered Patient was loaded up on Protonix 80 mg Started on octreotide drip in ED, ideally would like to have the patient on 24 hours of octreotide before attempting EGD Plan: -Clear liquid diet today -N.p.o. from midnight -EGD planned for tomorrow -Monitor hemoglobin with daily CBC, keep hemoglobin greater than 7 -Octeriotide IV 50mcg/h for 1mg -Continue Protonix IV 40mg bid Ongoing issues, managed by the primary team: #Heavy Alcohol Use #Type 2 diabetes #History of hypertension Thank you for the consult. We will continue to follow the patient. Case discussed with my attending Dr. Ajit Cole MD PGY-1 Attending Provider Attestation/Addendum Patient evaluated Presented with melanotic stools On at the moment IV Protonix and octreotide Consent obtained for fiberoptic esophagogastroduodenoscopy possible biopsy possible therapeutic intervention under intravenous moderate sedation scheduled for tomorrow Serial CBC Transfuse if the hemoglobin drops below 7 g Thank you very much for the opportunity to participate in the care of this patient
[2025-10-12] MEDS: OCTREOTIDE ACET INJ 50 mCg/ML VIAL IV (15:56)
[2025-10-12] MEDS: OCTREOTIDE ACET INJ 1,000 MCG in SODIUM CHLORIDE 0.9% 100 ML 5.1 MCG IV (16:08)
--- NOTE | 2025-10-12 16:56 | PD.RESHP ---
Documentation for date of: 10/12/25 [facility] History of Present Illness Chief complaint: general weakness History of present illness: The patient is a 80-year-old Danish and Hmong speaking male with previous medical history of hypertension, hyperlipidemia, diabetes, iron deficiency anemia, type 2 diabetes, depression who presents for evaluation of hematochezia, bright red blood per rectum, when he had a BM earlier in the morning today, and progressively worsening in the afternoon. Patient reports 500 to 700 mL reddish stool. He endorses tiredness, worse with the last episode of bloody BM. He also states that the bloody BM was accompanied by profuse generalized diaphoresis. Denies fevers, lightheadedness, dizziness, SOB, chest pain, palpitations, abdominal pain, N/V/D, or constipation. He usually ambulates using cane, but right now he is too weak to walk. ED course: VSS BP 127/71, HR 108, RR 18, T98.6F, O2 96 in RA Labs showed WBC 9.5, Hgb 9.1, HCT 28.9, K+ 3.8, BUN 25, CR 1.0, glucose 195, PT 10.9, INR 1.0, APTT 24.6 Treatment: Patient received 1 unit of pRBC after type and screen. Pantoprazole IVP 80 mg x 1. Octreotide acetate 50 mcg/h for 1mg total infusion. Allergies: Penicillins, grass Medications: Full med rec is pending. Patient does not recall his medication and grandson states that he can provide the list soon. PMHx: Diabetes mellitus, HTN, hypercholesterol Surgical history: Cataract surgery FMHx: History of diabetes and hypertension Social history: Lives with his family at home, able to ambulate independently with cane, sometimes drives himself to his doctor's appointment. Stopped drinking altogether 2 months ago. States that he had been drinking an average of 8 cans of beers since 48yo. Started smoking at 12 and stopped when he was 48. Review of Systems Review of Systems Systems Reviewed: All systems reviewed, normal except as documented Past Medical History Past Medical History CARDIAC: Positive Hypercholesterolemia and Hypertension ENDOCRINE: Positive Diabetes Mellitus Type 2 PSYCHO/SOCIAL: Positive Depression Social History SMOKING STATUS: Never smoker Exam Vital Signs Temp Pulse Resp BP Pulse Ox O2 Del Method 98.6 F 93 17 127/71 98 Room Air 10/12/25 16:16 12/17/25 16:16 10/12/25 16:16 10/12/25 16:16 10/12/25 16:16 10/12/25 16:16 Narrative Exam Physical Exam General: Awake and in no acute distress. Conversational and non-toxic appearing. HEENT: Normocephalic, atraumatic, mucous membranes moist. Heart: Regular rate and rhythm, no murmurs. Lungs: Clear to auscultation with no wheezing or crackles. Abdomen: Soft, nondistended, nontender, positive bowel sounds. ?No guarding or rebound tenderness. Neurologic: Alert and oriented x3, BUE strength 5/5 strength in the lower extremities 4/5, decreased sensitivity in bilateral feet. Extremities: No edema. Skin: No rash or ecchymoses. Results: Labs 10/12/25 14:53 10/12/25 14:53 Labs: Short CBC 10/12/25 Range/Units 14:53 WBC 9.5 (3.8-10.6) Thou/mm3 Hgb 9.1 L (13.5-16.0) g/dL Hct 28.9 L (41.0-53.0) % Plt Count 314 (140-440) Thou/mm3 BMP 10/12/25 14:53 Sodium 136 Potassium 3.8 Chloride 100 Carbon Dioxide 24.2 BUN 25 H Creatinine 1.0 Glucose 195 H Calcium 8.6 Liver Function 10/12/25 Range/Units 14:53 Total Bilirubin 0.2 L (0.3-1.2) mg/dL AST 18 (0-34) U/L ALT 22 (10-49) U/L Alkaline Phosphatase 68 (46-116) U/L Albumin 4.0 (3.4-4.8) gm/dL Quality Measures Quality Measures none Advance care planning discussed with:: patient Medications Home Medications and Allergies Home Medications ?Medication ?Instructions ?Recorded ?Confirmed ?Type atorvastatin 20 mg tablet (Lipitor) 20 mg PO HS CHOLESTROL ##0 11/30/13 02/23/25 History montelukast 10 mg tablet 10 mg PO QHSPRN PRN ASTHMA ##0 11/30/13 02/23/25 History (Singulair) omeprazole 20 mg tablet,delayed 20 mg PO QDAY GERD ##0 11/30/13 02/23/25 History release risperidone 1 mg tablet (Risperdal) 1 mg PO HS #0 tabs 11/30/13 02/23/25 History Aspirin (Aspir 81) 81 mg PO QDAY ##0 09/03/17 02/23/25 History baclofen 10 mg tablet 10 mg PO BID #0 tabs 09/03/17 02/23/25 History ferrous sulfate 325 mg (65 mg 325 mg PO BIDWM #0 tabs 09/03/17 02/23/25 History iron) tablet (Feosol) amlodipine 5 mg tablet 5 mg PO QDAY 02/23/25 02/23/25 History empagliflozin 25 mg tablet 25 mg PO QDAY 02/23/25 02/23/25 History (Jardiance) escitalopram oxalate 10 mg tablet 10 mg PO QDAY 02/23/25 02/23/25 History gabapentin 100 mg capsule 100 mg PO TID 02/23/25 02/23/25 History glipizide 10 mg tablet 10 mg PO BID 02/23/25 02/23/25 History levocetirizine 5 mg tablet 5 mg PO QDAY 02/23/25 02/23/25 History Allergies Allergy/AdvReac Type Severity Reaction Status Date / Time Penicillins Allergy Severe Anaphylaxis Verified 10/12/25 14:00 Visit Medications Acetaminophen (Acetaminophen 325 Mg Tablet) 650 mg PO Q6H PRN PRN Reason: Fever >100 Stop: 11/11/25 16:42 Acetaminophen (Acetaminophen 325 Mg Tablet) 650 mg PO Q6H PRN PRN Reason: PAIN SCALE 1-3 (mild Stop: 11/11/25 16:47 Hydrocodone Bitart/Acetaminophen (Hydrocodone/Apap 5/325 Tablet) 1 tab PO Q4HR PRN PRN Reason: PAIN SCALE 4-6 (Moderate Stop: 10/17/25 16:47 Heparin Sodium (Porcine) (Heparin Sod Inj 5000 Unit/Ml Vial) 5,000 unit SC Q12H AJ Stop: 10/26/25 16:59 Octreotide Acetate 1,000 mcg/ (Sodium Chloride) 102 mls @ 5.1 mls/hr IV .Q20H AJ; Protocol Stop: 10/17/25 14:44 Last Admin: 10/12/25 16:08 Dose: 50 mcg/hr, 5.1 mls/hr Ondansetron HCl (Ondansetron Inj 2 Mg/Ml Inj 2 Ml) 4 mg IVP Q6H PRN; Protocol PRN Reason: NAUSEA OR VOMITING Stop: 11/11/25 16:42 Pantoprazole Sodium (Pantoprazole Inj 40 Mg Vial) 40 mg IVP Q12HR AJ Stop: 11/12/25 08:59 Discontinued Medications Octreotide Acetate (Octreotide Acet Inj 50 Mcg/Ml Vial) 50 mcg IV X1 ONE Stop: 10/12/25 14:39 Last Admin: 10/12/25 15:56 Dose: 50 mcg Pantoprazole Sodium (Pantoprazole Inj 40 Mg Vial) 80 mg IVP X1 ONE Stop: 10/12/25 14:39 Last Admin: 10/12/25 16:01 Dose: 80 mg Assessment & Plan Plan The patient is a 79-year-old Danish and Hmong speaking male with previous medical history of hypertension, hyperlipidemia, diabetes, type 2 diabetes, depression #GIB, Possibly secondary to Peptic or gastric ulcers vs esophageal varices from Portal hypertension iso longstanding alcohol use vs gastritis/esophagitis/erosive duodenitis vs Eden-Doll tear vs hemoroids vs diverticular disease 0.5 -0.7L of bloody BM on the morning of 10/12 for the first time and worsening in the afternoon. Hgb at presentation 9.1, Patient complains of complaining of generalized tiredness, while denying recent fevers, lightheadedness, dizziness, or SOB Plan: - GI, Dr. Fong, consulted; appreciate recommendations. - EGD ordered 1u of pRBC after type and screen - Octeriotide IV 50mcg/h for 1mg - ordered Occult blood test - ordered US liver - Protonix IVP 40mg bid - Rocephin 1g daily for PPx SBP #Heavy Alcohol Use, Hx of Patient states history of daily drinking, 8 beers a day on average, since 48yo and stopping altogether 2mo ago. Patient not in AMS changes during this visit, low suspicion of withdrawal. - Ammonia ordered by ED #Type 2 diabetes Previous Hgb A1c 7.2 02/23 Plan: ? Insulin sliding scale with Accu-Cheks ? Hypoglycemia protocol - Ordered new Hgb A1c with morning labs #History of hypertension Plan: ? Will hold blood pressure medications for now due to normal blood pressure - pending med rec Health Maintenance: Disposition: Med Tele Diet: CLD PPx DVT: Heparin SC 5000u BID PPx GI: Protonix IV 40mg BID Code Status: Full This case was discussed with my attending physician, Dr. Red, and senior resident, Dr Kelley. Even though this this note was carefully revised there may still be minor errors in dictaphone technician due to voice recognition software. Candida Vila DO PGY I Senior Resident Attestation: The patient is an 80-year-old male with past medical history significant for hypertension, hyperlipidemia, diabetes mellitus type 2, iron deficiency anemia, depression who presented with chief complaint of hematochezia that started this morning, and had couple episodes of bowel movement with total of about 500 to 700 cc of red stool, later turned dark. The patient reported being a heavy drinker for past 32 years, and quit about 2 months ago. His vitals were fairly stable, and labs were significant for hemoglobin of 9.1, but received 1 unit PRBC in the ED. As there was concern regarding possible variceal bleed, he was started on octreotide drip, pantoprazole 80 mg IV x 1. He was also started on pantoprazole 40 mg IV twice daily, including ceftriaxone 1 g daily for SBP prophylaxis and Dr. Fong GI was consulted. He was also started on SSI. I discussed with and supervised the grinder set up operator internal physician involved in the care of this patient. I personally saw and examined the patient and discussed the assessment and plan with the entire medicine team, including my attending. I agree with the assessment and plan as documented above. Stan Kelley MD PGY3 Internal Medicine Attending Provider Attestation/Addendum I or my resident physicians have discussed care with the ED physician and I have made the decision to admit. I have discussed and was present for the essential components of the history, physical examination, diagnosis, and treatment plan with the resident. I agree with the patient's care as documented by the resident and amended herein by me. Bennie Red DO. Although this document has been carefully reviewed, there may still be some phonetic and other typographical errors. These errors are purely grammatical due to imperfections in the software program and should not be construed in any way to compromise the substance of the patient's medical care during this visit.
--- NOTE | 2025-10-12 17:31 | XR_ITS ---
Examination: Abdomen sonogram, Limited Date and time of exam: October 12, 2025, 1809 hours INDICATIONS: Bloody black stools today, alcohol abuse history 30 years Technique: Real-time rowley scale transabdominal sonographic images of the upper abdomen obtained. Findings: Normal gallbladder Common bile duct 0.6 cm no stones Pancreatic tail 3.2 cm Liver 13.7 cm right lobe mildly vascular liver lesion 3.0 x 2.4 x 2.6 cm Normal hepatopetal portal venous flow Patent IVC IMPRESSION: Normal gallbladder Right lobe liver lesion, differential would include primary hepatocellular carcinoma, hepatic metastasis, recommend MRI abdomen liver follow-up pre and postcontrast
[2025-10-12] MEDS: cefTRIAXone/D5w 1gm IV premix 1 GM/50 ML BAG IV (18:25)
[2025-10-12 18:30] LABS: Collection Type, Urine Clean Catch
[2025-10-12 18:53] LABS: Bacteria,Urine Rare; Bilirubin,Urine Negative (Negative); Blood,Urine Negative (Negative); Budding Yeast,Urine Present; Clarity,Urine Clear (Clear/Hazy); Color,Urine Colorless (Lt Yel-Yel); Culture Indicated,Urine Not Indicated; Glucose, Urine 4+ (Negative); Ketones,Urine Negative (Negative); Leukocyte Esterase,Urine Positive (Negative); Nitrite,Urine Negative (Negative); PH,Urine 6.0 (5.0-7.0); Protein,Urine Negative (Neg - Trace); RBC,Urine 7 /hpf (0-3); Specific Gravity,Urine 1.024 (1.001-1.035); Squamous Epithelial Cell,Urine 1 /hpf (0-5); Urobilinogen,Urine Negative mg/dL (0.0-1.0); WBC,Urine 10 /hpf (0-5)
[2025-10-13] VITALS (21 sets, daily range): BP systolic 104–144; BP diastolic 55–81; PULSE 66–88; RESP 9–18; TEMP 36.1–37.2; O2SAT 93–100; BMI 28.0
[2025-10-13 05:33] LABS: Basophils # (Auto) 0.1 Thou/mm3 (0.0-0.2); Basophils % (Auto) 1 % (0-2.5); Eosinophils # (Auto) 0.3 Thou/mm3 (0.0-0.5); Eosinophils % (Auto) 3 % (0-10); Hematocrit 29.2 % (41.0-53.0); Hemoglobin 9.4 g/dL (13.5-16.0); Immature Granulocytes Auto 0.09 Thou/mm3 (0.00-0.00); Lymphocytes # (Auto) 2.8 Thou/mm3 (1.0-4.8); Lymphocytes % (Auto) 30 % (10-50); Mean Corpuscular HGB Conc 32.2 g/dl (31.0-37.0); Mean Corpuscular Hemoglobin 25.5 pg (25.0-35.0); Mean Corpuscular Volume 79 fL (80-100); Monocytes # (Auto) 0.7 Thou/mm3 (0.0-0.8); Monocytes % (Auto) 8 % (0-12); Neutrophils # (Auto) 5.5 Thou/mm3 (1.8-7.7); Neutrophils % (Auto) 59 % (37-80); Nucleated Red Blood Cell # 0.00 Thou/mm3 (0.00-0.00); Nucleated Red Blood Cell % 0 /100 WBC (0); Platelet Count 270 Thou/mm3 (140-440); RDW Standard Deviation 51.8 fL (35.1-43.9); Red Blood Count 3.68 Miln/mm3 (4.50-5.90); White Blood Count 9.4 Thou/mm3 (3.8-10.6)
[2025-10-13 06:22] LABS: Alanine Aminotransferase 18 U/L (10-49); Albumin, Serum 3.6 gm/dL (3.4-4.8); Albumin/Globulin Ratio 1.4 (1.2-2.2); Alkaline Phosphatase 60 U/L (46-116); Anion Gap 10 (7-16); Aspartate Amino Transferase 14 U/L (0-34); BUN/Creatinine Ratio 18 Ratio (12-20); Bilirubin,Total 0.4 mg/dL (0.3-1.2); Blood Urea Nitrogen 18 mg/dL (9-23); Calcium 8.4 mg/dL (8.3-10.6); Calcium (Corrected) 8.7 mg/dL (8.5-10.1); Carbon Dioxide 26.0 mMol/L (20.0-31.0); Cardiac Risk Estimate 3.0 RATIO (4.0-6.7); Chloride 102 mMol/L (98-107); Cholesterol 98 mg/dL (132-200); Creatinine (Component) 1.0 mg/dL (0.6-1.3); Estimated Creatinine Clearance 60.0 mL/min (>60); Globulin 2.6 gm/dL (2.3-3.5); Glucose 127 mg/dL (74-106); HDL Cholesterol 33 mg/dL (40-60); LDL Cholesterol,Calculated 37 mg/dL (0-130); Magnesium 1.4 mg/dL (1.6-2.6); Osmolality,Calculated 279 (275-295); Phosphorous 3.3 mg/dL (2.4-5.1); Potassium 3.8 mMol/L (3.4-5.1); Sodium 138 mMol/L (136-145); Total Protein 6.2 gm/dL (5.7-8.2); Triglycerides 138 mg/dL (30-150); eGFR > 60 See Note
[2025-10-13] MEDS: Magnesium Sulfate 4 GM Ivpb 4 GM/50 ML BAG IV (08:55)
[2025-10-13] MEDS: cefTRIAXone/D5w 1gm IV premix 1 GM/50 ML BAG IV (08:55)
[2025-10-13] MEDS: OCTREOTIDE ACET INJ 1,000 MCG in SODIUM CHLORIDE 0.9% 100 ML 5.1 MCG IV (11:40)
--- NOTE | 2025-10-13 14:03 | ESPR_ITS ---
Documentation for date of: 10/13/25 Subjective Subjective Interval history: Patient was seen and examined at bedside. No acute events took place overnight. Patient states to be doing the same, feeling tired and slow, denies dizziness, lightheadedness. Although the bleeding per rectum had been getting worse by the afternoon yesterday, patient has not had BM to report any changes. He denies SOB, chest pain, palpitations, abdominal pain, N/V/D, or constipation. Patient has been kept n.p.o. since midnight in anticipation of EGD later today. Exam Vital Signs Temp Pulse Resp BP Pulse Ox O2 Del Method 97.6 F 72 16 123/69 97 Room Air 10/13/25 12:10/13/25 12:10/13/25 12:10/13/25 12:10/13/25 12:10/13/25 12:31 Narrative Exam General: Awake and in no acute distress. Conversational and non-toxic appearing. HEENT: Normocephalic, atraumatic, mucous membranes moist. Heart: Regular rate and rhythm, no murmurs. Lungs: Clear to auscultation with no wheezing or crackles. Abdomen: Soft, nondistended, nontender, positive bowel sounds. ?No guarding or rebound tenderness. Neurologic: Alert and oriented x3, BUE strength 5/5 strength in the lower extremities 4/5, decreased sensitivity in bilateral feet. Extremities: No edema. Skin: No rash or ecchymoses. Objective Labs 10/13/25 04:30 10/13/25 04:30 Labs: Laboratory Results - last 24 hr 10/12/25 10/12/25 10/13/25 14:53 18:05 04:30 WBC 9.5 9.4 RBC 3.75 L 3.68 L Hgb 9.1 L 9.4 L Hct 28.9 L 29.2 L MCV 77 L 79 L MCH 24.3 L 25.5 MCHC 31.5 32.2 RDW Std Deviation 47.2 H 51.8 H Plt Count 314 270 D Neut % (Auto) 62 59 Lymph % (Auto) 27 30 [place] % (Auto) 9 8 Eos % (Auto) 1 3 Baso % (Auto) 1 1 Neut # (Auto) 5.9 5.5 Lymph # (Auto) 2.6 2.8 [place] # (Auto) 0.9 H 0.7 Eos # (Auto) 0.1 0.3 Baso # (Auto) 0.1 0.1 Immature Gran # (Auto) 0.12 H 0.09 H Absolute Nucleated RBC 0.00 0.00 Immature Gran % 1 H 1 H Nucleated RBC % 0 0 PT 10.9 INR 1.0 APTT 24.6 Sodium 136 138 Potassium 3.8 3.8 Chloride 100 102 Carbon Dioxide 24.2 26.0 Anion Gap 12 10 BUN 25 H 18 Creatinine 1.0 1.0 Estim Creat Clear Calc 60.6 L 60.0 L eGFR > 60 > 60 BUN/Creatinine Ratio 25 H 18 Glucose 195 H 127 H D Calculated Osmolality 281 279 Calcium 8.6 8.4 Corrected Calcium 8.6 8.7 Phosphorus 3.3 Magnesium 1.4 L Total Bilirubin 0.2 L 0.4 AST 18 14 ALT 22 18 Alkaline Phosphatase 68 60 Ammonia 13 Total Protein 6.7 6.2 Albumin 4.0 3.6 Globulin 2.7 2.6 Albumin/Globulin Ratio 1.5 1.4 Triglycerides 138 Cholesterol 98 L LDL Cholesterol, Calc 37 HDL Cholesterol 33 L Cholesterol/HDL Ratio 3.0 L Lipase 35 Ur Collection Type Clean Catch Urine Color Colorless A Urine Clarity Clear Urine pH 6.0 Ur Specific [place] 1.024 Urine Protein Negative Urine Glucose (UA) 4+ A Urine Ketones Negative Urine Blood Negative Urine Nitrite Negative Urine Bilirubin Negative Urine Urobilinogen (Auto) Negative Ur Leukocyte Esterase Positive Urine RBC 7 H Urine WBC 10 H Ur Squamous Epith Cells 1 Urine Bacteria Rare Urine Yeast (Budding) Present A Ur Culture Indicated? Not Indicated Blood Type B Positive Antibody Screen NEGATIVE Crossmatch See Detail Blood Bank Wristband ID Yes Quality Measures Quality Measures VTE prophylaxis Advance care planning discussed with:: patient Assessment & Plan Assessment Current Active Medications: Generic Name Dose Route Start Last Admin Trade Name Freq PRN Reason Stop Dose Admin Acetaminophen 650 mg 10/12/25 16:43 Acetaminophen 325 Mg Tablet PO 11/11/25 16:42 Q6H PRN Fever >100 Acetaminophen 650 mg 10/12/25 16:48 Acetaminophen 325 Mg Tablet PO 11/11/25 16:47 Q6H PRN PAIN SCALE 1-3 (mild Hydrocodone Bitart/Acetaminophen 1 tab 10/12/25 16:48 Hydrocodone/Apap 5/325 Tablet PO 10/17/25 16:47 Q4HR PRN PAIN SCALE 4-6 (Moderate Dextrose 25 ml 10/12/25 17:27 Dextrose 50%-Water Inj 50 Ml Syringe IV 11/11/25 17:26 Q15MIN PRN BG 50-70 responsive npo pt Dextrose 50 ml 10/12/25 17:27 Dextrose 50%-Water Inj 50 Ml Syringe IV 11/11/25 17:26 Q15MIN PRN BG <50 OR BG <70 & pt unresponsive Glucagon 1 mg 10/12/25 17:27 Glucagon Inj 1 Mg Vial IM Q15MIN PRN BG <70, and no IV access Heparin Sodium (Porcine) 5,000 unit 10/12/25 21:00 10/13/25 08:55 Heparin Sod Inj 5000 Unit/Ml Vial SC 10/26/25 20:59 Not Given Q12H AJ Octreotide Acetate 1,000 mcg/ 102 mls @ 5.1 mls/hr 10/12/25 14:45 10/13/25 11:40 Sodium Chloride IV 10/17/25 14:44 50 mcg/hr .Q20H AJ 5.1 mls/hr Protocol Administration 50 MCG/HR Ceftriaxone Sodium/Dextrose 1 gm in 50 mls @ 100 mls/hr 10/12/25 17:57 10/13/25 08:55 Rocephin/D5w 1gm Iv Premix IV 10/19/25 17:56 100 mls/hr QDAY AJ Administration Insulin Human Lispro 0 unit 10/13/25 00:00 10/13/25 11:38 Insulin Lispro (Admelog) 1 Unit/0.01 Ml Unit SC 11/12/25 00:00 Not Given Q6HR AJ Protocol Ondansetron HCl 4 mg 10/12/25 16:43 Ondansetron Inj 2 Mg/Ml Inj 2 Ml IVP 11/11/25 16:42 Q6H PRN NAUSEA OR VOMITING Protocol Pantoprazole Sodium 40 mg 10/13/25 09:00 10/13/25 08:55 Pantoprazole Inj 40 Mg Vial IVP 11/12/25 08:59 40 mg Q12HR AJ Administration Plan The patient is a 79-year-old Icelandic and Hmong speaking male with previous medical history of hypertension, hyperlipidemia, diabetes, type 2 diabetes, depression #GIB, Possibly secondary to Peptic or gastric ulcers vs esophageal varices from Portal hypertension iso longstanding alcohol use vs gastritis/esophagitis/erosive duodenitis vs Eden-Doll tear vs hemoroids vs diverticular disease 0.5 -0.7L of bloody BM on the morning of 10/12 for the first time and worsening in the afternoon. Hgb at presentation 9.1, Patient complains of complaining of generalized tiredness, while denying recent fevers, lightheadedness, dizziness, or SOB ? US Liver was significant for Rt lobe lesion: hepatocellular carcinoma, metastasis Plan: - GI, Dr. Fong, consulted; appreciate recommendations. - pending EGD 10/13 - Octeriotide IV 50mcg/h for 1mg - Will reassess indication for MRI abdomen liver for characterization of the Rt lobe lesion on US liver. 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 Patient not in AMS changes during this visit, low suspicion of withdrawal. Ammonia 13 WNL #Type 2 diabetes Previous Hgb A1c 7.2 02/23/2025 Patient NPO as of 10/13 (no insulin given) TG 138, Ch 98, LDL 37, HDL 37 ASCVD risk 33.7% Plan: ? Insulin sliding scale with Accu-Cheks Q6h - Resumed atorvastatin PO 20mg HS ? Hypoglycemia protocol - Ordered new Hgb A1c with morning labs #History of hypertension Patient takes amlodipine p.o. 5 mg HS at home Plan: ? Will hold blood pressure medications for now due to normal blood pressure #Depression/Anxiety -Resumed escitalopram PO 10mg Qday #SOB or wheezing -albuterol sulfate 90mcg/actuation 2puff Q4h PRN Health Maintenance: Disposition: Med Tele Diet: NPO PPx DVT: Heparin SC 5000u BID PPx GI: Protonix IV 40mg BID Code Status: Full This case was discussed with my attending physician, Dr. Lowe, and senior resident, Dr Kelley. Even though this this note was carefully revised there may still be minor errors in river tester due to voice recognition software. Candida Vila, DO PGY I Senior Resident Attestation: The patient mentioned that he is doing much better this morning. He denied any abdominal pain, and did not had any bowel movement after coming to ED. GI Dr. Fong will proceed with EGD tonight, and in the meantime we will continue with octreotide drip, pantoprazole 40 mg IV twice daily and ceftriaxone. I discussed with and supervised the technology development intern physician involved in the care of this patient. I personally saw and examined the patient and discussed the assessment and plan with the entire medicine team, including my attending. I agree with the assessment and plan as documented above. Stan Kelley MD PGY3 Internal Medicine Attending Provider Attestation/Addendum I have seen and examined the patient. I was physically present for the arvizu portions of the services provided including history, physical exam, diagnosis, treatment plans and orders. I agree with assessment and plan of care as documented by residents. Even though this this note was carefully revised there may still be minor errors in river tester due to voice recognition software. Irma Lowe MD
--- NOTE | 2025-10-13 17:43 | SUR.PHASEI ---
1723 Awake, alert able to lift head off of pillow, following simple commands continue to monitor pt vital signs and status.
--- NOTE | 2025-10-13 18:12 | SUR.PHASEI ---
1808 Transfer to room 371 in stable condition , no complaints, no s/s of distress noted.
[2025-10-13] MEDS: NA SU/NAHCO3/KC/PEG (Golytely) 4,000 ML BTL 4000 ML PO ×2 (18:33→23:35)
[2025-10-14] VITALS (20 sets, daily range): BP systolic 124–157; BP diastolic 65–90; PULSE 65–89; RESP 11–19; TEMP 36.2–37.2; O2SAT 92–100; BMI 28.5; BMI 28.4
[2025-10-14 04:18] LABS: OBS Card Lot # 0124; OBS Developer Lot # 23003; OBS QC OK? Yes; Occult Blood, Stool Positive (Negative)
[2025-10-14 06:07] LABS: Basophils # (Auto) 0.1 Thou/mm3 (0.0-0.2); Basophils % (Auto) 1 % (0-2.5); Eosinophils # (Auto) 0.2 Thou/mm3 (0.0-0.5); Eosinophils % (Auto) 2 % (0-10); Hematocrit 30.2 % (41.0-53.0); Hemoglobin 9.6 g/dL (13.5-16.0); Immature Granulocytes Auto 0.06 Thou/mm3 (0.00-0.00); Lymphocytes # (Auto) 2.0 Thou/mm3 (1.0-4.8); Lymphocytes % (Auto) 23 % (10-50); Mean Corpuscular HGB Conc 31.8 g/dl (31.0-37.0); Mean Corpuscular Hemoglobin 25.1 pg (25.0-35.0); Mean Corpuscular Volume 79 fL (80-100); Monocytes # (Auto) 0.8 Thou/mm3 (0.0-0.8); Monocytes % (Auto) 8 % (0-12); Neutrophils # (Auto) 5.9 Thou/mm3 (1.8-7.7); Neutrophils % (Auto) 66 % (37-80); Nucleated Red Blood Cell # 0.00 Thou/mm3 (0.00-0.00); Nucleated Red Blood Cell % 0 /100 WBC (0); Platelet Count 298 Thou/mm3 (140-440); RDW Standard Deviation 51.9 fL (35.1-43.9); Red Blood Count 3.83 Miln/mm3 (4.50-5.90); White Blood Count 9.0 Thou/mm3 (3.8-10.6)
[2025-10-14 06:35] LABS: Glucose Estimated Average 128 mg/dL (80-131); Hemoglobin A1C 6.1 % Hgb (4.8-6.0)
[2025-10-14 06:41] LABS: Alanine Aminotransferase 17 U/L (10-49); Albumin, Serum 3.9 gm/dL (3.4-4.8); Albumin/Globulin Ratio 1.4 (1.2-2.2); Alkaline Phosphatase 63 U/L (46-116); Anion Gap 11 (7-16); Aspartate Amino Transferase 19 U/L (0-34); BUN/Creatinine Ratio 9 Ratio (12-20); Bilirubin,Total 0.4 mg/dL (0.3-1.2); Blood Urea Nitrogen 9 mg/dL (9-23); Calcium 8.3 mg/dL (8.3-10.6); Calcium (Corrected) 8.4 mg/dL (8.5-10.1); Carbon Dioxide 27.6 mMol/L (20.0-31.0); Chloride 100 mMol/L (98-107); Creatinine (Component) 1.0 mg/dL (0.6-1.3); Estimated Creatinine Clearance 60.5 mL/min (>60); Globulin 2.7 gm/dL (2.3-3.5); Glucose 138 mg/dL (74-106); Magnesium 1.8 mg/dL (1.6-2.6); Osmolality,Calculated 278 (275-295); Phosphorous 2.6 mg/dL (2.4-5.1); Potassium 3.8 mMol/L (3.4-5.1); Sodium 139 mMol/L (136-145); Total Protein 6.6 gm/dL (5.7-8.2); eGFR > 60 See Note
[2025-10-14] MEDS: OCTREOTIDE ACET INJ 1,000 MCG in SODIUM CHLORIDE 0.9% 100 ML 5.1 MCG IV (07:47)
[2025-10-14] MEDS: ESCITALOPRAM OXALATE 10 MG TABLET PO (09:08)
[2025-10-14] MEDS: cefTRIAXone/D5w 1gm IV premix 1 GM/50 ML BAG IV (09:09)
--- NOTE | 2025-10-14 12:11 | ESPR_ITS ---
Documentation for date of: 10/14/25 Subjective Subjective Interval history: No acute night events. Patient seen examined at bedside. Patient endorses is feeling well, no more bloody movements. Has already finished 2 gallons of GoLytely and is clear. VSS. Hemoglobin stable, kidney function stable, A1c 6.1. EGD showed normal esophagus, nonerosive gastritis, no abdominal, esophageal ulcers no significant bleeding found. Plan for colonoscopy tonight. Stop Rocephin and octreotide due to lack of esophageal varices on EGD. Resumed home risperidone. Exam Vital Signs Temp Pulse Resp BP Pulse Ox O2 Del Method O2 Flow Rate 97.4 F 82 18 132/72 H 99 Room Air 5 10/14/25 08:00 10/14/25 08:00 10/14/25 08:00 10/14/25 08:00 10/14/25 08:00 10/14/25 08:00 10/13/25 17:18 Narrative Exam General: Awake and in no acute distress. Conversational and non-toxic appearing. HEENT: Normocephalic, atraumatic, mucous membranes moist. Heart: Regular rate and rhythm, no murmurs. Lungs: Clear to auscultation with no wheezing or crackles. Abdomen: Soft, nondistended, nontender, positive bowel sounds. ?No guarding or rebound tenderness. Neurologic: Alert and oriented x3, BUE strength 5/5 strength in the lower extremities 4/5, decreased sensitivity in bilateral feet. Extremities: No edema. Skin: No rash or ecchymoses. Objective Labs 10/14/25 05:32 10/14/25 05:32 Labs: Laboratory Results - last 24 hr 10/12/25 10/13/25 10/14/25 14:53 22:12 05:32 WBC 9.0 RBC 3.83 L Hgb 9.6 L Hct 30.2 L MCV 79 L MCH 25.1 MCHC 31.8 RDW Std Deviation 51.9 H Plt Count 298 Neut % (Auto) 66 Lymph % (Auto) 23 [place] % (Auto) 8 Eos % (Auto) 2 Baso % (Auto) 1 Neut # (Auto) 5.9 Lymph # (Auto) 2.0 [place] # (Auto) 0.8 Eos # (Auto) 0.2 Baso # (Auto) 0.1 Immature Gran # (Auto) 0.06 H Absolute Nucleated RBC 0.00 Immature Gran % 1 H Nucleated RBC % 0 Sodium 139 Potassium 3.8 Chloride 100 Carbon Dioxide 27.6 Anion Gap 11 BUN 9 Creatinine 1.0 Estim Creat Clear Calc 60.5 L eGFR > 60 BUN/Creatinine Ratio 9 L Glucose [address] Glu mg/dL 128 Hemoglobin A1c 6.1 H Calculated Osmolality 278 Calcium 8.3 Corrected Calcium 8.4 L Phosphorus 2.6 Magnesium 1.8 Total Bilirubin 0.4 AST 19 ALT 17 Alkaline Phosphatase 63 Total Protein 6.6 Albumin 3.9 Globulin 2.7 Albumin/Globulin Ratio 1.4 Stool Occult Blood Positive A Blood Type B Positive Antibody Screen NEGATIVE Crossmatch See Detail Blood Bank Wristband ID Yes Quality Measures Quality Measures VTE prophylaxis Advance care planning discussed with:: patient Assessment & Plan Assessment Current Active Medications: Generic Name Dose Route Start Last Admin Trade Name Freq PRN Reason Stop Dose Admin Acetaminophen 650 mg 10/12/25 16:43 Acetaminophen 325 Mg Tablet PO 11/11/25 16:42 Q6H PRN Fever >100 Acetaminophen 650 mg 10/12/25 16:48 Acetaminophen 325 Mg Tablet PO 11/11/25 16:47 Q6H PRN PAIN SCALE 1-3 (mild Hydrocodone Bitart/Acetaminophen 1 tab 10/12/25 16:48 Hydrocodone/Apap 5/325 Tablet PO 10/17/25 16:47 Q4HR PRN PAIN SCALE 4-6 (Moderate Albuterol 2 puff 10/13/25 17:02 Albuterol Inh 8 Gm INH 11/12/25 17:01 Q4H PRN shortness of breath or wheezing Amlodipine Besylate 5 mg 10/14/25 21:00 Amlodipine Besylate 5 Mg Tablet PO 11/13/25 20:59 HS AJ Aspirin 81 mg 10/14/25 09:00 10/14/25 09:10 Aspirin Ec 81 Mg Tabec PO 11/13/25 08:59 Not Given QDAY AJ Atorvastatin Calcium 20 mg 10/14/25 21:00 Atorvastatin Calcium 20 Mg Tablet PO 11/13/25 20:59 HS AJ Dextrose 25 ml 10/12/25 17:27 Dextrose 50%-Water Inj 50 Ml Syringe IV 11/11/25 17:26 Q15MIN PRN BG 50-70 responsive npo pt Dextrose 50 ml 10/12/25 17:27 Dextrose 50%-Water Inj 50 Ml Syringe IV 11/11/25 17:26 Q15MIN PRN BG <50 OR BG <70 & pt unresponsive Escitalopram Oxalate 10 mg 10/14/25 09:00 10/14/25 09:08 Escitalopram Oxalate 10 Mg Tablet PO 11/13/25 08:59 10 mg QDAY AJ Administration Gabapentin 300 mg 10/14/25 14:00 Gabapentin 300 Mg Capsule PO 11/13/25 13:59 TID AJ Glucagon 1 mg 10/12/25 17:27 Glucagon Inj 1 Mg Vial IM Q15MIN PRN BG <70, and no IV access Heparin Sodium (Porcine) 5,000 unit 10/12/25 21:00 10/14/25 09:10 Heparin Sod Inj 5000 Unit/Ml Vial SC 10/26/25 20:59 Not Given Q12H AJ Insulin Human Lispro 0 unit 10/13/25 00:00 10/14/25 11:58 Insulin Lispro (Admelog) 1 Unit/0.01 Ml Unit SC 11/12/25 00:00 Not Given Q6HR AJ Protocol Ondansetron HCl 4 mg 10/12/25 16:43 Ondansetron Inj 2 Mg/Ml Inj 2 Ml IVP 11/11/25 16:42 Q6H PRN NAUSEA OR VOMITING Protocol Pantoprazole Sodium 40 mg 10/13/25 09:00 10/14/25 09:09 Pantoprazole Inj 40 Mg Vial IVP 11/12/25 08:59 40 mg Q12HR AJ Administration Risperidone 1 mg 10/14/25 21:00 Risperidone 1 Mg Tablet PO 11/13/25 20:59 HS AJ Plan The patient is a 79-year-old Northern Irish and Hmong speaking male with previous medical history of hypertension, hyperlipidemia, diabetes, type 2 diabetes, depression #GIB, Possibly secondary to Peptic or gastric ulcers vs esophageal varices from Portal hypertension iso longstanding alcohol use vs gastritis/esophagitis/erosive duodenitis vs [place]-Doll tear vs hemoroids vs diverticular disease 0.5 -0.7L of bloody BM on the morning of 10/12 for the first time and worsening in the afternoon. Hgb at presentation 9.1, Patient complains of complaining of generalized tiredness, while denying recent fevers, lightheadedness, dizziness, or SOB ? US Liver was significant for Rt lobe lesion: hepatocellular carcinoma, metastasis - 10/13 EGD: Normal esophagus, nonerosive gastritis, normal duodenum, esophageal ulcers Plan: - GI, Dr. Fong, consulted; appreciate recommendations: colonoscopy tonight - pending Occult blood test - Protonix IVP 40mg bid - Stopped Rocephin 1g daily for PPx SBP and octreotide due to lack of esophageal varicies on EGD - CTM Hgb #Liver mass (3.0x2.6x2.4 cm) Incidental finding on liver ultrasound. Plan: - Notified patient of liver mass however patient declined MRI workup and further investigation. Explanation of benefits versus risk explained as well as possible likelihood of cancer however patient continues to deny further workup stating that he is 80 years of age. 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 Patient not in AMS changes during this visit, low suspicion of withdrawal. Ammonia 13 WNL #Type 2 diabetes Previous Hgb A1c 7.2 02/23/2025. a1c 6.1. Patient NPO as of 10/13 (no insulin given) TG 138, Ch 98, LDL 37, HDL 37 ASCVD risk 33.7% Plan: ? Insulin sliding scale with Accu-Cheks Q6h - Resumed atorvastatin PO 20mg HS ? Hypoglycemia protocol #History of hypertension Patient takes amlodipine p.o. 5 mg HS at home Plan: ? Resumed home amlodipine 5 mg hs #Depression/Anxiety -Resumed escitalopram PO 10mg Qday - Resumed home risperidone 1 mg qhs #SOB or wheezing -albuterol sulfate 90mcg/actuation 2puff Q4h PRN Health Maintenance: Disposition: Med Tele Diet: NPO PPx DVT: Heparin SC 5000u BID PPx GI: Protonix IV 40mg BID Code Status: Full This case was discussed with my attending physician, Dr. Lowe, and senior resident, Dr Kelley. Even though this this note was carefully revised there may still be minor errors in centrifugal extractor operator due to voice recognition software. Cat Bonner, DO Internal Medicine PGY-1 Senior Resident Attestation: The patient underwent EGD yesterday evening, and was found to have esophageal ulcer, and nonerosive gastritis. No variceal bleed or prominent esophageal varices were seen. The patient was started with GoLytely for colonoscopy. His octreotide and ceftriaxone was discontinued. He was started on risperidone. The patient will be discharged after colonoscopy as per GI recommendations. I discussed with and supervised the public health internship physician involved in the care of this patient. I personally saw and examined the patient and discussed the assessment and plan with the entire medicine team, including my attending. I agree with the assessment and plan as documented above. Stan Kelley MD PGY3 Internal Medicine Attending Provider Attestation/Addendum I have seen and examined the patient. I was physically present for the arvizu portions of the services provided including history, physical exam, diagnosis, treatment plans and orders. I agree with assessment and plan of care as documented by residents. Even though this this note was carefully revised there may still be minor errors in centrifugal extractor operator due to voice recognition software. Irma Lowe MD
--- NOTE | 2025-10-14 12:15 | PC.SS ---
Patient Ophelia Garcia is a 80 Year old male admitted for SS met with patient at bedside to discuss discharge plan and verify demographic information. Patient reports he lives at home with his . Patient reports he does not utilize any source of DME to assist with ambulation, however does have a FWW as needed. Patient reports he is able to complete all ADL's independently. Choice of pharmacy is [facility]. PCP is Valente Whitfield. Patient reports his his surrogate decision maker is his daughter, Miguel Busby . At time of discharge the patient reports he would like to discharge back home. Family will provide transportation. Discharge plan: Home Next of kin: daughter, Miguel Busby PCP: Valente Whitfield
[2025-10-14] MEDS: GABAPENTIN 300 MG CAPSULE PO ×2 (13:34→21:02)
--- NOTE | 2025-10-14 13:54 | PC.SS ---
Rounding note; Colonoscopy pending, Patient will discharge back home when medically cleared.
--- NOTE | 2025-10-14 17:49 | SUR.PHASEI ---
1749: Pt. AAOx4, vitals stable, breathing unlabored, no complaint of pain or nausea, no dressing in place, no active bleed noted, report received from Danii MARIE.
--- NOTE | 2025-10-14 18:27 | SUR.PHASEI ---
Pt. AAOx4, vitals stable, breathing unlabored, no complaint of pain or nausea, no dressing in place, no active bleed noted, pt. tolerated sips of water and bites of jello well, gave report to Thompson MARIE prior to transfer to room 371.
[2025-10-14] MEDS: HEPARIN SOD INJ 5000 UNIT/ML VIAL SC (20:31)
[2025-10-14] MEDS: INSULIN LISPRO (AdmeLOG) 1 UNIT/0.01 ML UNIT SC (20:31)
[2025-10-14] MEDS: ATORVASTATIN CALCIUM 20 MG TABLET PO (20:32)
[2025-10-15] VITALS: BP 112/61; PULSE 65; PULSE 72; RESP 15; TEMP 36.1; O2SAT 96
[2025-10-15 04:00] VITALS: BP 114/65; PULSE 69; PULSE 80; RESP 17; TEMP 36.1; O2SAT 97
[2025-10-15] MEDS: GABAPENTIN 300 MG CAPSULE PO (05:07)
[2025-10-15 05:14] VITALS: BMI 28.5
[2025-10-15 05:57] LABS: Basophils # (Auto) 0.1 Thou/mm3 (0.0-0.2); Basophils % (Auto) 1 % (0-2.5); Eosinophils # (Auto) 0.2 Thou/mm3 (0.0-0.5); Eosinophils % (Auto) 3 % (0-10); Hematocrit 29.2 % (41.0-53.0); Hemoglobin 9.4 g/dL (13.5-16.0); Immature Granulocytes Auto 0.06 Thou/mm3 (0.00-0.00); Lymphocytes # (Auto) 2.3 Thou/mm3 (1.0-4.8); Lymphocytes % (Auto) 29 % (10-50); Mean Corpuscular HGB Conc 32.2 g/dl (31.0-37.0); Mean Corpuscular Hemoglobin 25.5 pg (25.0-35.0); Mean Corpuscular Volume 79 fL (80-100); Monocytes # (Auto) 0.6 Thou/mm3 (0.0-0.8); Monocytes % (Auto) 8 % (0-12); Neutrophils # (Auto) 4.5 Thou/mm3 (1.8-7.7); Neutrophils % (Auto) 58 % (37-80); Nucleated Red Blood Cell # 0.00 Thou/mm3 (0.00-0.00); Nucleated Red Blood Cell % 0 /100 WBC (0); Platelet Count 267 Thou/mm3 (140-440); RDW Standard Deviation 53.1 fL (35.1-43.9); Red Blood Count 3.68 Miln/mm3 (4.50-5.90); White Blood Count 7.8 Thou/mm3 (3.8-10.6)
[2025-10-15 06:31] LABS: Alanine Aminotransferase 13 U/L (10-49); Albumin, Serum 3.6 gm/dL (3.4-4.8); Albumin/Globulin Ratio 1.3 (1.2-2.2); Alkaline Phosphatase 62 U/L (46-116); Anion Gap 11 (7-16); Aspartate Amino Transferase 17 U/L (0-34); BUN/Creatinine Ratio 7 Ratio (12-20); Bilirubin,Total 0.4 mg/dL (0.3-1.2); Blood Urea Nitrogen 7 mg/dL (9-23); Calcium 8.3 mg/dL (8.3-10.6); Calcium (Corrected) 8.6 mg/dL (8.5-10.1); Carbon Dioxide 25.9 mMol/L (20.0-31.0); Chloride 103 mMol/L (98-107); Creatinine (Component) 1.0 mg/dL (0.6-1.3); Estimated Creatinine Clearance 60.5 mL/min (>60); Globulin 2.7 gm/dL (2.3-3.5); Glucose 131 mg/dL (74-106); Magnesium 1.7 mg/dL (1.6-2.6); Osmolality,Calculated 279 (275-295); Phosphorous 4.8 mg/dL (2.4-5.1); Potassium 3.8 mMol/L (3.4-5.1); Sodium 140 mMol/L (136-145); Total Protein 6.3 gm/dL (5.7-8.2); eGFR > 60 See Note
[2025-10-15 07:34] VITALS: PULSE 67
[2025-10-15 08:00] VITALS: BP 111/63; PULSE 68; RESP 17; TEMP 36.3; O2SAT 95
[2025-10-15] MEDS: ESCITALOPRAM OXALATE 10 MG TABLET PO (08:35)
[2025-10-15] MEDS: ASPIRIN EC 81 MG TABEC PO (08:35)
[2025-10-15 08:59] VITALS: PULSE 62; RESP 20; O2SAT 95
[2025-10-15 12:00] VITALS: BP 119/66; PULSE 68; PULSE 82; RESP 18; TEMP 36.5; O2SAT 98
--- NOTE | 2025-10-15 13:32 | PC.NURSE ---
Discharge needs met, patient left with family, with all belongings, in stable condition at 1209.
--- NOTE | 2025-10-15 14:52 | ESDS_ITS ---
<Statement entered by Heri Pimentel MD - 10/15/25 15:49> I saw and examined patient personally and supervised PGY 1 resident, Dr. Vila with formulating a management plan. I agree with the documentation as listed below. Plan of care discussed with Attending Dr. Mynor Pimentel MD PGY 2 Disclaimer: This note was dictated by speech recognition. Minor errors in [employer] system freight car cleaner may be present due to voice recognition software. Planned Discharge Date 10/15/25 DS: Providers Provider Date of admission: 10/12/25 16:49 Primary care physician: Valente Whitfield MD Admitting Provider: John Red DO Attending Provider on Admission: Irma Lowe MD Consults: 10/12/25 15:42 Consult to Gastroenterology Stat Comment: UGIB Consulting Provider: Jesus Fong Attending Provider on DC: Candida Vila DO Discharging Provider: Candida Vila DO DS: Diagnosis Problem List Completed Was Problem List Reviewed/Reconciled?: Yes Hospital Course Hospital Course Hospital course: The patient is a 79-year-old Welsh and Hmong speaking male with previous medical history of hypertension, hyperlipidemia, diabetes, type 2 diabetes, depression who presented for tiredness and episode of bloody diarrhea on the morning of 10/12/2025. Patient reported 0.5-0.7 L of bloody BM, that was getting worse toward the afternoon of the same day. He denied fevers, lightheadedness, dizziness, or shortness of breath. Hgb at presentation 9.1, VSS, and no leukocytosis presnet. GI, Dr. Fong, was consulted who preceded with EGD on 10/13 showing normal esophagus, nonerosive gastritis, normal duodenum, and esophageal ulcers. Follow-up colonoscopy was scheduled and completed on 10/14 with the findings of internal hemorrhoids grade 2 without prolapse but which reduces spontaneously. Moderate diverticulosis in the sigmoid colon and the descending colon without bleeding. A large sessile ( > 1 cm) polyp in the transverse colon removed with a hot snare. Ultrasound of the liver was significant for right lobe lesion, differentials would include hepatocellular carcinoma and/or metastases. However, patient declined MRI workup and further investigation after explanation of benefits versus risk, stating that he was advanced in age for an explanation of his choice. As such, patient declined MRI to investigate the liver mass. While hospitalized, patient was resumed on home medication for type 2 diabetes, hypercholesterolemia, hypertension, depression and anxiety, and asthma. CBC stable, WBC 7.8, and Hgb 9.4. CMP unremarkable. At the time of discharge, patient is medically stable and deemed safe to return to his/her previous state of living. Admission diagnosis: #GIB, Possibly secondary to Peptic or gastric ulcers vs esophageal varices from Portal hypertension iso longstanding alcohol use vs gastritis/esophagitis/erosive duodenitis vs [place]-Doll tear vs hemoroids vs diverticular disease #Liver mass (3.0 x 2.6 x 2.4 cm) #Heavy alcohol use, history of #Type 2 diabetes #History of hypertension #Depression/anxiety #SOB or wheezing Discharge instructions: - We have switched your Iron tablets to every other day to avoid constipation. - You will need a repeat colonoscopy in 5 years. - Follow up with Dr. Fong in 2-3 weeks for results of your biopsy and to schedule outpatient capsule endoscopy. - Follow up with your primary care physician within 1 week of discharge. If you do not have a primary care physician, please follow up with the [facility] Residents clinic ([phone]) ? If you experience any new, worsening or persistent symptoms either call your primary doctor, or dial 911 or present to the emergency department. This case was discussed with my attending physician, Dr. Lowe, and senior resident, Dr Pimentel. Even though this this note was carefully revised there may still be minor errors in [employer] system freight car cleaner due to voice recognition software. Candida Vila, PGY I Status at Discharge Functional status at discharge: uses cane/walker Time Spent with Patient Time attestation: Total time spent providing and/or coordinating discharge services: 40 minutes Time spent: Greater than 30 minutes Exam Vital Signs Temp Pulse Resp BP Pulse Ox O2 Del Method O2 Flow Rate 97.7 F 68 18 119/66 98 Room Air 3 10/15/25 12:10/15/25 12:10/15/25 12:10/15/25 12:10/15/25 12:10/15/25 12:10/14/25 17:40 Narrative Exam General: Awake and in no acute distress. Conversational and non-toxic appearing. HEENT: Normocephalic, atraumatic, mucous membranes moist. Heart: Regular rate and rhythm, no murmurs. Lungs: Clear to auscultation with no wheezing or crackles. Abdomen: Soft, nondistended, nontender, positive bowel sounds. ?No guarding or rebound tenderness. Neurologic: Alert and oriented x3, BUE strength 5/5 strength in the lower extremities 4/5, decreased sensitivity in bilateral feet. Extremities: No edema. Skin: No rash or ecchymoses. Discharge Plan Plan Patient Disposition: HOME (Self Care) Patient condition on transfer: Benefits outweigh risks Care Plan Goals: - We have switched your Iron tablets to every other day to avoid constipation. - You will need a repeat colonoscopy in 5 years. - Follow up with Dr. Fong in 2-3 weeks for results of your biopsy and to schedule outpatient capsule endoscopy. - Follow up with your primary care physician within 1 week of discharge. If you do not have a primary care physician, please follow up with the [facility] Residents clinic ([phone]) ? If you experience any new, worsening or persistent symptoms either call your primary doctor, or dial 911 or present to the emergency department. Prescriptions/Referrals Prescriptions/Med Rec: Continued montelukast [Singulair] 10 MG tablet 10 mg PO QDAY Qty: 0 atorvastatin [Lipitor] 20 MG tablet 20 mg PO HS Qty: 0 risperidone [Risperdal] 1 MG tablet 1 mg PO HS Qty: 0 omeprazole 20 MG tablet,delayed release (DR/EC) 40 mg PO QDAY Qty: 0 Aspirin (Aspir 81) 81 MG TABLET.DR 81 mg PO QDAY Qty: 0 baclofen 10 MG tablet 10 mg PO Q8H PRN (Reason: spasm) Qty: 0 levocetirizine 5 mg tablet 5 mg PO QDAY Patient Comments: TAKE 1 TABLET BY MOUTH ONCE DAILY gabapentin 100 mg capsule 300 mg PO TID Patient Comments: TAKE 1 CAPSULE BY MOUTH THREE TIMES DAILY amlodipine 5 mg tablet 5 mg PO HS Patient Comments: TAKE 1 TABLET BY MOUTH ONCE DAILY AT BEDTIME Jardiance 25 mg tablet 25 mg PO QDAY Patient Comments: TAKE 1 TABLET BY MOUTH ONCE DAILY IN THE MORNING escitalopram oxalate 10 mg tablet 10 mg PO QDAY Patient Comments: TAKE 1 TABLET BY MOUTH ONCE DAILY glipizide 10 mg tablet 10 mg PO BID Patient Comments: TAKE 1 TABLET BY MOUTH TWICE DAILY benzonatate 200 mg capsule 200 mg PO TID PRN (Reason: cough) Patient Comments: TAKE 1 CAPSULE BY MOUTH THREE TIMES DAILY NEEDED FOR COUGH albuterol sulfate 90 mcg/actuation HFA aerosol inhaler 2 puff INHALATION Q4H PRN (Reason: shortness of breath or wheezing) Patient Comments: INHALE 2 PUFFS BY MOUTH EVERY 4 HOURS NEEDED Trelegy Ellipta 200-62.5-25 mcg blister with device 1 inh INHALATION QDAY Patient Comments: INHALE 1 PUFF ONCE DAILY DIRECTED Mounjaro 5 mg/0.5 mL pen injector 5 mg SUBCUT QWEEK Patient Comments: INJECT 1 PEN SUBCUTANEOUSLY ONCE A WEEK Rx Instructions: Q Changed ferrous sulfate [Feosol] 1 TAB tablet 325 mg PO Q OTHER DAY 30 Days Qty: 15 0RF Referrals: Jesus Fong MD [Physician, Gastroenterology] Valente Whitfield MD [Primary Care Provider, Family Practice] Patient/Caregiver Discharge Instructions Discharge Activity: activity as tolerated Education Materials: Capsule Endoscopy, Upper GI Endoscopy with Biopsy, Colonoscopy Print Language: Welsh Stand Alone Forms: Liane Award Info., Patient Portal Info Letter Discharge Order Discharge Orders: Discharge (Routine); Ordered 10/15/25 Ordered By: Heri Pimentel Quality Discharge Quality Measures VTE prophylaxis Attestestation MD Attestation I have seen and examined the patient. I was physically present for the arvizu p ortions of the services provided including history, physical exam, diagnosis, treatment plans and orders. I agree with assessment and plan of care as documented by residents. Even though this this note was carefully revised there may still be minor errors in delta system freight car cleaner due to voice recognition software. Irma Lowe MD
--- NOTE | 2025-10-15 21:52 | PD.IMPROG ---
Documentation for date of: 10/15/25 Subjective Subjective Interval history: Late entry for the note hemoglobin hematocrit stable at 9.4 and 29.2 Okay to discharge patient home for outpatient follow-up and possible capsule endoscopy as an outpatient Exam Vital Signs Temp Pulse Resp BP Pulse Ox O2 Del Method O2 Flow Rate 97.7 F 68 18 119/66 98 Room Air 3 10/15/25 12:00 10/15/25 12:00 10/15/25 12:00 10/15/25 12:00 10/15/25 12:00 10/15/25 12:00 10/14/25 17:40 Objective Labs 10/15/25 05:30 10/15/25 05:30 Labs: Laboratory Results - last 24 hr 10/12/25 10/15/25 14:53 05:30 WBC 7.8 RBC 3.68 L Hgb 9.4 L Hct 29.2 L MCV 79 L MCH 25.5 MCHC 32.2 RDW Std Deviation 53.1 H Plt Count 267 D Neut % (Auto) 58 Lymph % (Auto) 29 [place] % (Auto) 8 Eos % (Auto) 3 Baso % (Auto) 1 Neut # (Auto) 4.5 Lymph # (Auto) 2.3 [place] # (Auto) 0.6 Eos # (Auto) 0.2 Baso # (Auto) 0.1 Immature Gran # (Auto) 0.06 H Absolute Nucleated RBC 0.00 Immature Gran % 1 H Nucleated RBC % 0 Sodium 140 Potassium 3.8 Chloride 103 Carbon Dioxide 25.9 Anion Gap 11 BUN 7 L Creatinine 1.0 Estim Creat Clear Calc 60.5 L eGFR > 60 BUN/Creatinine Ratio 7 L Glucose 131 H Calculated Osmolality 279 Calcium 8.3 Corrected Calcium 8.6 Phosphorus 4.8 Magnesium 1.7 Total Bilirubin 0.4 AST 17 ALT 13 Alkaline Phosphatase 62 Total Protein 6.3 Albumin 3.6 Globulin 2.7 Albumin/Globulin Ratio 1.3 Crossmatch See Detail Impressions Impression: Anemia blood loss Diverticulosis colon Colonic polyp endoscopic resection Outpatient follow-up Assessment & Plan Time Spent With Patient Time: Total time spent is greater than 50% in coordination of care (as documented) at patient's floor/unit and/or counseling patient:
== END 2025-10-15 12:09 | disposition home or self-care (01) | DRG 381 ==
LOC: SERX 16:05 → SERHOLD 17:04 → S3SX 10-13 05:56
PROVIDERS: Nurse Practitioner Family; Nurse Practitioner Primary Care; Specialist; Admitting Provider Student in an Organized Health Care Education/Training Program; Emergency Provider Emergency Medicine; PCP Family Medicine; Visit Provider Student in an Organized Health Care Education/Training Program
PROC: 0DJ08ZZ Inspection of Upper Intestinal Tract, Via Natural or Artificial Opening Endoscopic (ICD-10-PCS; CPT 43239; principal; 2025-10-13 16:30)
PROC: 0DJD8ZZ Inspection of Lower Intestinal Tract, Via Natural or Artificial Opening Endoscopic (ICD-10-PCS; CPT 45378; principal; 2025-10-14 16:00)
DX: K22.11 Ulcer of esophagus with bleeding (principal); D62 Acute posthemorrhagic anemia; F32.A Depression, unspecified; E78.00 Pure hypercholesterolemia, unspecified; I10 Essential (primary) hypertension; E11.9 Type 2 diabetes mellitus without complications; D50.9 Iron deficiency anemia, unspecified; D12.3 Benign neoplasm of transverse colon; K29.71 Gastritis, unspecified, with bleeding; K64.1 Second degree hemorrhoids; J45.909 Unspecified asthma, uncomplicated; K57.31 Diverticulosis of large intestine without perforation or abscess with bleeding; F41.9 Anxiety disorder, unspecified; D12.5 Benign neoplasm of sigmoid colon; D12.4 Benign neoplasm of descending colon; F17.200 Nicotine dependence, unspecified, uncomplicated; Z79.84 Long term (current) use of oral hypoglycemic drugs; Z88.0 Allergy status to penicillin
CPT/HCPCS: 36415; 76705; 80053; 80061; 81001; 82140; 82270; 83036; 83690; 83735; 84100; 85025; 85610; 85730; 86850; 86900; 86901; 86923; 93225; 96365; 96375; 99283; A4649; J0696; J1200; J1644; J1815; J2250; J2354; J2470; J3010; J3475; J7050; P9016; A9270